=== PATIENT | female | born 1990 | race Caucasian/White ===

== ENCOUNTER 2017-12-25 15:46 | Emergency (ER) | payer OTHER, BC, SELFPAY ==
[2017-12-25 15:53] VITALS: BP 122/72; PULSE 72; RESP 14; TEMP 36.9; O2SAT 98
[2017-12-25] MEDS: KETOROLAC 60 MG/2 ML VIAL IM (16:46)
--- NOTE | 2017-12-25 17:09 | ED_ITS ---
HPI - Skin/Abscess/Foreign Bdy <NUVIA Jain - Last Filed: 12/25/17 18:56> General Chief complaint: Skin/Abscess/Foreign Body Stated complaint: Abscess Time Seen by Provider: 12/25/17 15:52 Source: patient Mode of arrival: ambulatory Limitations: no limitations History of Present Illness HPI narrative: Patient presents with chief complaint of abscess left axilla. Has been present for 4-5 days and growing despite multiple warm compresses per day. Patient has a history of MRSA. Denies any fevers, nausea vomiting diarrhea. Has had abscesses before that needed to be I&Dd. Denies any lightheadedness or dizziness. states it was draining pus a bit yesterday. Related Data Previous Rx's Medication Instructions Recorded acyclovir 400 mg tablet 400 mg PO TID #15 tab 08/17/17 lorazepam 0.5 mg tablet 0.5 mg PO ONCE PRN #1 tab 12/17/17 sulfamethoxazole-trimethoprim 1 tab PO BID #20 tab 12/25/17 Allergies Allergy/AdvReac Type Severity Reaction Status Date / Time No Known Drug Allergies Allergy Verified 12/25/17 15:55 Review of Systems <NUVIA Jain - Last Filed: 12/25/17 18:56> Review of Systems GENERAL: Denies chills, fatigue, malaise, fever, sweats. HEENT: Denies sinus pain, ear pain, sore throat, difficulty swallowing, dizziness. RESPIRATORY: Denies dyspnea, cough, wheezing, hemoptysis, sputum. CARDIOVASCULAR: Denies chest pain, palpitations, orthopnea, edema, GASTROINTESTINAL: Denies nausea, vomiting, abdominal pain, diarrhea, constipation, melena. : Denies dysuria, frequency, incontinence, hematuria, urinary retention. MUSCULOSKELETAL: denies weakness, joint pain, or bony pain SKIN: see HPI NEUROLOGIC: Denies weakness, headache, numbness, change in speech, confusion, seizures, incoordination. PSYCHIATRIC: No concerning psychosocial issues. 12 point review of systems is negative except for those stated above Exam <NUVIA Jain - Last Filed: 12/25/17 18:56> Narrative Exam Narrative: GENERAL: This is a well-nourished, well-developed patient, anxious HEAD: Atraumatic. Normocephalic. No temporal or scalp tenderness. EYES: Pupils equal round and reactive. Extraocular motions intact. No scleral icterus. No injection or drainage. ENT: Nose without bleeding, purulent drainage or septal hematoma. Throat without erythema, tonsillar hypertrophy or exudate. Uvula midline. Airway patent. NECK: Trachea midline. No JVD or lymphadenopathy. Supple, nontender, no meningeal signs. CARDIOVASCULAR: Regular rate and rhythm RESPIRATORY: Clear to auscultation. Breath sounds equal bilaterally. No wheezes , rales, or rhonchi. GASTROINTESTINAL: Abdomen soft, non-tender, nondistended. No hepato-splenomegaly , or palpable masses. No guarding. EXTREMITIES: No clubbing, cyanosis, or edema. No joint tenderness, effusion, or edema noted. BACK: Nontender without deformity or crepitance. No flank tenderness. NEURO: AOx3. SKIN: 3 x 3 cm area of erythema left axilla. Palpable abscess. Noted head. Lymphadenopathy noted right axilla as well, but no erythema or drainage noted. Initial Vital Signs Initial Vital Signs: Vital Signs Temperature 98.5 F 12/25/17 15:53 Pulse Rate 72 12/25/17 15:53 Respiratory Rate 14 12/25/17 15:53 Blood Pressure 122/72 12/25/17 15:53 Pulse Oximetry 98 12/25/17 15:53 <Jean-Claude Trinidad DO - Last Filed: 12/27/17 07:01> Initial Vital Signs Initial Vital Signs: Vital Signs Temperature 98.5 F 12/25/17 15:53 Pulse Rate 72 12/25/17 15:53 Respiratory Rate 14 12/25/17 15:53 Blood Pressure 122/72 12/25/17 15:53 Pulse Oximetry 98 12/25/17 15:53 Procedures <NUVIA Jain - Last Filed: 12/25/17 18:56> Abscess I/D Site: other (left axilla ) Side (if applicable): left Local Anesthetic: lidocaine 1% and other anesthetic (emla cream) Amount of anesthesia used (mL): 4 Technique: incised with #11 blade Irrigation: Yes Packing used?: iodoform Complications: other ( Patient tolerated procedure well. Wound culture taken.) Course <NUVIA Jain - Last Filed: 12/25/17 18:56> Orders Ordered: Discontinued Medications Ketorolac Tromethamine (Toradol) 60 mg IM NOW ONE Stop: 12/25/17 16:41 Last Admin: 12/25/17 16:46 Dose: 60 mg Trimethoprim/Sulfamethoxazole (Bactrim Ds) 1 tab PO NOW ONE Stop: 12/25/17 17:07 Last Admin: 12/25/17 17:14 Dose: 1 tab Vital Signs - 8 hr 12/25/17 15:53 12/25/17 17:17 Temperature 98.5 F Pulse Rate 72 73 Respiratory Rate 14 15 Blood Pressure 122/72 Blood Pressure [Right Arm] 110/75 Pulse Oximetry 98 98 <Jean-Claude Trinidad DO - Last Filed: 12/27/17 07:01> Orders Ordered: Discontinued Medications Ketorolac Tromethamine (Toradol) 60 mg IM NOW ONE Stop: 12/25/17 16:41 Last Admin: 12/25/17 16:46 Dose: 60 mg Trimethoprim/Sulfamethoxazole (Bactrim Ds) 1 tab PO NOW ONE Stop: 12/25/17 17:07 Last Admin: 12/25/17 17:14 Dose: 1 tab Vital Signs - 8 hr 12/25/17 15:53 12/25/17 17:17 Temperature 98.5 F Pulse Rate 72 73 Respiratory Rate 14 15 Blood Pressure 122/72 Blood Pressure [Right Arm] 110/75 Pulse Oximetry 98 98 MDM - Skin/Abscess/Foreign Bdy <NUVIA Jain - Last Filed: 12/25/17 18:56> MDM Narrative Medical decision making narrative: Patient presents with chief complaint of abscess. Abscess was drained without complications. Patient was placed on Bactrim given history of MRSA. Toradol administered an emergency department. Discussed at length return precautions if fever, worsening. Wound culture was sent. Discussed follow-up with primary care provider in a few days. Patient has no questions or concerns upon discharge. Discharge Plan Departure Patient Disposition: Home Clinical Impression: Abscess Discharge Date/Time: 12/25/17 17:20 Interventions: ED Discharge Assessment Last Done: 12/25/17 17:19 Instructions: DI for Incision and Drainage of a Skin Abscess, DI for Skin Abscess Activity Restrictions/Additional Instructions: I am starting you on antibiotics given your history of MRSA. Please monitor for worsening. Please follow-up with primary care for removal of the packing and a wound check in about 2 days. Monitor for fevers, vomiting, diarrhea. Prescriptions: New sulfamethoxazole-trimethoprim 800-160 mg tablet 1 tab PO BID Qty: 20 RF: 0 No Action acyclovir 400 mg tablet 400 mg PO TID Qty: 15 RF: 0 lorazepam 0.5 mg tablet 0.5 mg PO ONCE PRN (Reason: anxiety) Qty: 1 RF: 0 Referrals: Kailyn Jackman DO [Primary Care Provider] - <Jean-Claude Trinidad DO - Last Filed: 12/27/17 07:01> Cosign ED Attending Stefanyature Attestation: I was available for consultation during this patient's emergency department encounter
[2017-12-25] MEDS: TRIMETH/SULFA 160/800 (DS) TABLET 1 TAB PO (17:14)
[2017-12-25 17:17] VITALS: BP 110/75; PULSE 73; RESP 15; O2SAT 98
== END 2017-12-25 17:20 | disposition home or self-care (01) ==
PROVIDERS: Emergency Provider Nurse Practitioner Family; Family Provider Family Medicine; PCP Family Medicine
DX: L02.412 Cutaneous abscess of left axilla (principal)
CPT/HCPCS: 10060; 87070; 87075; 87077; 87147; 87186; 87205; 96372; 99282; 99283; J1885

== ENCOUNTER 2018-04-02 14:02 | Emergency (ER) | payer OTHER, SELFPAY ==
[2018-04-02 14:14] VITALS: BP 117/84; PULSE 68; RESP 16; O2SAT 100
--- NOTE | 2018-04-02 14:35 | ED.GENADULT ---
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 She has been vaccinated against hepatitis-B. Her last tetanus was 3 years ago. She states she was pulling a poor access needle out and stuck her left palm. she states that the needle did not break the skin. Related Data Home Medications Medication Instructions Recorded Confirmed No Known Home Medications 04/02/18 04/02/18 Allergies Allergy/AdvReac Type Severity Reaction Status Date / Time No Known Drug Allergies Allergy Verified 01/02/18 16:48 Review of Systems <LAVINIA Jain - Last Filed: 04/02/18 16:57> Review of Systems GENERAL: Denies chills, fatigue, malaise, fever, sweats. HEENT: Denies sinus pain, ear pain, sore throat, difficulty swallowing, dizziness. RESPIRATORY: Denies dyspnea, cough, wheezing, hemoptysis, sputum. CARDIOVASCULAR: Denies chest pain, palpitations, orthopnea, edema, GASTROINTESTINAL: Denies nausea, vomiting, abdominal pain, diarrhea, constipation, melena. : Denies dysuria, frequency, incontinence, hematuria, urinary retention. MUSCULOSKELETAL: denies weakness, joint pain, or bony pain SKIN: See HPI NEUROLOGIC: Denies weakness, headache, numbness, change in speech, confusion, seizures, incoordination. PSYCHIATRIC: No concerning psychosocial issues. 12 point review of systems is negative except for those stated above Exam <YESSICA Jain- - Last Filed: 04/02/18 16:57> Narrative Exam Narrative: GENERAL: This is a well-nourished, well-developed patient, no acute distress HEAD: Atraumatic. Normocephalic. No temporal or scalp tenderness. EYES: Pupils equal round and reactive. Extraocular motions intact. No scleral icterus. No injection or drainage. ENT: Nose without bleeding, purulent drainage or septal hematoma. Throat without erythema, tonsillar hypertrophy or exudate. Uvula midline. Airway patent. NECK: Trachea midline. No JVD or lymphadenopathy. Supple, nontender, no meningeal signs. CARDIOVASCULAR: Regular rate and rhythm RESPIRATORY: no cough or increased respiratory effort EXTREMITIES: No clubbing, cyanosis, or edema. No joint tenderness, effusion, or edema noted. Full range of motion left hand BACK: Nontender without deformity or crepitance. No flank tenderness. NEURO: AOx3. SKIN: no abrasion or puncture jason noted on left palm. Initial Vital Signs Initial Vital Signs: Vital Signs Pulse Rate 68 04/02/18 14:14 Respiratory Rate 16 04/02/18 14:14 Blood Pressure 117/84 04/02/18 14:14 Pulse Oximetry 100 04/02/18 14:14 <Jean-Claude Trinidad DO - Last Filed: 04/02/18 17:24> Initial Vital Signs Initial Vital Signs: Vital Signs Pulse Rate 68 04/02/18 14:14 Respiratory Rate 16 04/02/18 14:14 Blood Pressure 117/84 04/02/18 14:14 Pulse Oximetry 100 04/02/18 14:14 Course <NUVIA Jain - Last Filed: 04/02/18 16:57> Orders Ordered: ED Orders 04/02/18 14:30 Alanine Aminotransferase Stat HIV 1 and 2 Antibody Stat Hepatitis B Surface Antigen Stat Hepatitis C Virus Antibody Stat Vital Signs - 8 hr 04/02/18 14:14 Pulse Rate 68 Respiratory Rate 16 Blood Pressure [Right Arm] 117/84 Pulse Oximetry 100 <Jean-Claude Trinidad DO - Last Filed: 04/02/18 17:24> Orders Ordered: ED Orders 04/02/18 14:30 Alanine Aminotransferase Stat HIV 1 and 2 Antibody Stat Hepatitis B Surface Antigen Stat Hepatitis C Virus Antibody Stat Vital Signs - 8 hr 04/02/18 14:14 Pulse Rate 68 Respiratory Rate 16 Blood Pressure [Right Arm] 117/84 Pulse Oximetry 100 Medical Decision Making <NUVIA Jain - Last Filed: 04/02/18 16:57> Lab Data Lab Results 04/02/18 04/02/18 Range/Units 14:30 14:30 ALT 25 (9-52) IU/L Hep Bs Antigen Negative (NEGATIVE) s/c Hepatitis C Antibody Negative (NEGATIVE) s/c HIV 1&2 Antibody Negative (NEGATIVE) MDM Narrative Medical decision making narrative: exposure panel labs were drawn per protocol. The patient's tetanus is up-to-date. She has been vaccinated against hepatitis-B. Paperwork filled out per hospital protocol. <Jean-Claude Trinidad DO - Last Filed: 04/02/18 17:24> Lab Data Lab Results 04/02/18 04/02/18 Range/Units 14:30 14:30 ALT 25 (9-52) IU/L Hep Bs Antigen Negative (NEGATIVE) s/c Hepatitis C Antibody Negative (NEGATIVE) s/c HIV 1&2 Antibody Negative (NEGATIVE) Discharge Plan Departure Patient Disposition: Home Clinical Impression: Accidental needlestick injury with exposure to body fluid Discharge Date/Time: 04/02/18 15:19 Interventions: ED Discharge Assessment Last Done: 04/02/18 15:18 Instructions: DI for Accidental Exposure to Body Fluids Activity Restrictions/Additional Instructions: Please follow-up with employee health. please do not stick yourself with any more needles. Prescriptions: No Action No Known Home Medications RF: 0 Referrals: Kailyn Jackman DO [Primary Care Provider] - <Jean-Claude Trinidad DO - Last Filed: 04/02/18 17:24> Cosign ED Attending Stefanyature Attestation: I was available for consultation during this patient's emergency department encounter
[2018-04-02 14:52] LABS: Alanine Aminotransferase 25 IU/L (9-52)
[2018-04-02 15:41] LABS: Hepatitis B Surface Antigen NEGATIVE s/c (NEGATIVE)
[2018-04-02 15:52] LABS: HIV 1 and 2 Antibody NEGATIVE (NEGATIVE); Hep C Virus Ab w/Reflex Quant NEGATIVE s/c (NEGATIVE)
[2018-04-04 15:41] LABS: Hepatitis B Surf Ab Qualitativ Reactive (Nonreactive)
== END 2018-04-02 15:19 | disposition home or self-care (01) ==
PROVIDERS: Emergency Provider Nurse Practitioner Family; Family Provider Family Medicine; PCP Family Medicine
DX: Z77.21 Contact with and (suspected) exposure to potentially hazardous body fluids (principal); W46.0XXA Contact with hypodermic needle, initial encounter; Y99.0 Civilian activity done for income or pay
CPT/HCPCS: 36415; 99282

== ENCOUNTER → 2018-04-29 18:20 | Outpatient (CLI) | payer OTHER, BC, SELFPAY ==
[2018-04-29 19:23] LABS: Influenza A and B by PCR Rapid Negative (Negative)
== END ==
PROVIDERS: Family Provider Family Medicine; PCP Family Medicine; Visit Provider Family Medicine
DX: R52 Pain, unspecified (principal)
CPT/HCPCS: 87400

== ENCOUNTER → 2018-06-25 13:17 | Outpatient (CLI) | payer OTHER, BC, SELFPAY | PROVIDERS: Family Provider Family Medicine; PCP Family Medicine; Visit Provider Nurse Practitioner Obstetrics & Gynecology | DX: N91.2 Amenorrhea, unspecified (principal) | CPT/HCPCS: 36415; 84702 ==

== ENCOUNTER → 2018-06-28 10:12 | Outpatient (CLI) | payer OTHER, BC, SELFPAY | PROVIDERS: PCP Family Medicine; Visit Provider Nurse Practitioner Obstetrics & Gynecology | DX: N91.2 Amenorrhea, unspecified (principal) | CPT/HCPCS: 36415; 84702 ==

== ENCOUNTER → 2018-07-01 13:26 | Outpatient (CLI) | payer OTHER, BC, SELFPAY | PROVIDERS: PCP Family Medicine; Visit Provider Nurse Practitioner Obstetrics & Gynecology | DX: N91.2 Amenorrhea, unspecified (principal) | CPT/HCPCS: 36415; 84702 ==

== ENCOUNTER → 2018-07-03 12:11 | Outpatient (CLI) | payer OTHER, BC, SELFPAY ==
[2018-07-03 14:00] LABS: HCG Quantitative /Beta subunit 1642.5 mIU/mL
== END ==
PROVIDERS: PCP Family Medicine; Visit Provider Nurse Practitioner Obstetrics & Gynecology
DX: N91.2 Amenorrhea, unspecified (principal)
CPT/HCPCS: 36415; 84702

== ENCOUNTER → 2018-07-29 18:22 | Outpatient (ROUT) | payer OTHER, BC, SELFPAY ==
[2018-07-29 20:30] LABS: Urine N gonorrhoeae NOT DETECTED
[2018-07-29 20:32] LABS: Urine Chlamydia NOT DETECTED
== END ==
PROVIDERS: PCP Family Medicine; Visit Provider Nurse Practitioner Obstetrics & Gynecology
DX: Z34.00 Encounter for supervision of normal first pregnancy, unspecified trimester (principal)
CPT/HCPCS: 87491; 87591

== ENCOUNTER → 2018-07-30 12:05 | Outpatient (CLI) | payer OTHER, BC, SELFPAY ==
[2018-07-30 12:13] LABS: RBC Urine None Seen (0-5/HPF)
[2018-07-30 12:29] LABS: Hematocrit 40.2 % (36-46); Hemoglobin 13.3 g/dL (12.0-16.0); Mean Corpuscular HGB Conc 33.2 % (30-36); Mean Corpuscular Hemoglobin 30.3 PG (26-34); Mean Corpuscular Volume 91.4 fL (80-100); Platelet Count 198 X10^3/uL (150-400); Red Cell Distribution Width 13.4 % (11.6-14.8); White Blood Cell Count 11.4 X10^3/uL (4.5-11.0)
[2018-07-30 13:26] LABS: Appearance Urine UA CLEAR; Bilirubin Urine UA NEGATIVE (NEGATIVE); Color Urine UA YELLOW; Glucose Urine UA NEGATIVE (Negative); Ketones Urine UA NEGATIVE (NEGATIVE); Leukocyte Esterase Urine UA NEGATIVE (NEGATIVE); Nitrite Urine UA NEGATIVE (Negative); Occult Blood Urine UA NEGATIVE (Negative); Protein Urine UA NEGATIVE (Negative); Urobilinogen Urine UA 0.2 E.U./dL (0.2)
[2018-07-30 13:48] LABS: Squamous Epithelial Cell Urine 0-1 /HPF (0-5/HPF); WBC Urine 0-1/HPF (0-5/HPF)
[2018-07-30 13:49] LABS: Bacteria Urine Few (2-10)
[2018-07-30 15:11] LABS: Hepatitis B Surface Antigen NEGATIVE s/c (NEGATIVE); Rubella Antibody IgG 18.4 IU/mL (>15)
[2018-07-30 15:27] LABS: T4 Total Thyroxine 9.33 ug/dL (5.5-11.0)
[2018-07-30 15:41] LABS: Thyroid Stimulating Hormone 0.45 uIU/mL (0.47-4.68)
[2018-08-01 10:24] LABS: HIV 1 and 2 Antibody NEGATIVE (NEGATIVE)
[2018-08-01 14:01] LABS: RPR Screen Nonreactive (Nonreactive)
== END ==
PROVIDERS: PCP Family Medicine; Visit Provider Nurse Practitioner Obstetrics & Gynecology
DX: Z34.00 Encounter for supervision of normal first pregnancy, unspecified trimester (principal)
CPT/HCPCS: 36415; 81001; 84436; 84443; 85027; 86592; 86696; 86703; 86762; 86900; 86901; 87086; 87340

== ENCOUNTER → 2018-08-14 19:15 | Outpatient (ROUT) | payer OTHER, BC, SELFPAY | PROVIDERS: PCP Family Medicine; Visit Provider Nurse Practitioner Obstetrics & Gynecology | DX: Z34.01 Encounter for supervision of normal first pregnancy, first trimester (principal) | CPT/HCPCS: 86695 ==

== ENCOUNTER → 2018-09-23 19:24 | Outpatient (ROUT) | payer OTHER, BC, SELFPAY ==
[2018-09-30 10:27] LABS: AFP, Serum 45.1 ng/mL; Calc Gestational Age 16.4; Est Date Determined by NOT GIVEN; Maternal Weight 141 lbs; Number of Fetuses 1; Prev Pregnancies Down Syndrome NOT GIVEN
== END ==
PROVIDERS: PCP Family Medicine; Visit Provider Nurse Practitioner Obstetrics & Gynecology
DX: Z34.02 Encounter for supervision of normal first pregnancy, second trimester (principal)
CPT/HCPCS: 82105

== ENCOUNTER 2018-10-29 13:41 | Outpatient (CLI) | payer OTHER, BC, SELFPAY ==
--- NOTE | 2018-10-29 14:06 | PM.OBTRLD ---
Visit Information Visit Information Date of evaluation: 10/29/18 Primary OB Provider: Katie Cohen Reason for Evaluation: Yes other Comments/Additional reasons for admission: decreased FM and concern for PPROM Vital Signs Vital Signs: stable, see Obix flowsheet [facility] Medical History Chlamydia (Chronic ~2012) Fracture of wrist (Chronic ~2001) Headache (Chronic ~2008) Heavy menstrual period (Chronic ~2004) Herpes (Chronic ~2012) Human papilloma virus (Chronic ~2012) Interstitial cystitis (Chronic ~2013) Migraines (Chronic ~2008) UTI (urinary tract infection) (Chronic ~1991) Abnormal Pap smear of cervix (Resolved ~2012) Surgical History Anesthesia (Resolved) Status post loop electrosurgical excision procedure (LEEP) of cervix (08/19/14) Family History Father Age: 68 Mental health problem Sister Age: 31 Mental health problem Grandfather No problems noted. Social History marital status: occupational status: employed ([employer]) Smoking Status: Never smoker alcohol intake: current substance use type: does not use Family History Father Age: 68 Mental health problem Sister Age: 31 Mental health problem Grandfather No problems noted. Social History marital status: occupational status: employed ([employer]) Smoking Status: Never smoker alcohol intake: current substance use type: does not use Review of Systems Review of Systems All systems reviewed & are unremarkable except as noted in HPI and below Exam Vital Signs (past 8 hours): 28YO @ [id number] by LMP and 6wk US presents from work in ED, concerned about decreased FM in last 24 hours and watery discharge for last 2 days. Has soaked through 2 panty liners and her pants today. On day 5 of treatment for vulvovaginal candidiasis. Other: FHTs 130-140bpm Psych Appearance: grossly normal Mental Status: mental status grossly normal Speech and Movement: agitated Mood: anxious mood Affect: animated and anxious affect Attitude: cooperative Thought Process: normal Objective Labs Labs: AmniSure-negative Evaluation Evaluation Baseline heart rate: 135 Contraction Frequency (minutes): 0 Comments: FM felt by patient in triage Diagnosis, Plan/Disposition Final Diagnosis (1) Amniotic cavity/membrane problem suspected but not found: Current Visit: Yes Status: Acute Plan/Disposition Plan: D/C back to work w/ reassurance and emotional support given. Routine precautions. RTC as previously scheduled. OB Disposition: home
--- NOTE | 2018-10-29 14:18 | P.TNLD_ITS ---
Visit Information Visit Information Date of evaluation: 10/29/18 Primary OB Provider: Katie Cohen Reason for Evaluation: Yes other Comments/Additional reasons for admission: decreased FM and concern for PPROM Vital Signs Vital Signs: stable, see Obix flowsheet [facility] Medical History Chlamydia (Chronic ~2012) Fracture of wrist (Chronic ~2001) Headache (Chronic ~2008) Heavy menstrual period (Chronic ~2004) Herpes (Chronic ~2012) Human papilloma virus (Chronic ~2012) Interstitial cystitis (Chronic ~2013) Migraines (Chronic ~2008) UTI (urinary tract infection) (Chronic ~1991) Abnormal Pap smear of cervix (Resolved ~2012) Surgical History Anesthesia (Resolved) Status post loop electrosurgical excision procedure (LEEP) of cervix (08/19/14) Family History Father Age: 68 Mental health problem Sister Age: 31 Mental health problem Grandfather No problems noted. Social History marital status: occupational status: employed ([employer]) Smoking Status: Never smoker alcohol intake: current substance use type: does not use Family History Father Age: 68 Mental health problem Sister Age: 31 Mental health problem Grandfather No problems noted. Social History marital status: occupational status: employed ([employer]) Smoking Status: Never smoker alcohol intake: current substance use type: does not use Review of Systems Review of Systems All systems reviewed & are unremarkable except as noted in HPI and below Exam Vital Signs (past 8 hours): 28YO @ [id number] by LMP and 6wk US presents from work in ED, concerned about decreased FM in last 24 hours and watery discharge for last 2 days. Has soaked through 2 panty liners and her pants today. On day 5 of treatment for vulvovaginal candidiasis. Other: FHTs 130-140bpm Psych Appearance: grossly normal Mental Status: mental status grossly normal Speech and Movement: agitated Mood: anxious mood Affect: animated and anxious affect Attitude: cooperative Thought Process: normal Objective Labs Labs: AmniSure-negative Evaluation Evaluation Baseline heart rate: 135 Contraction Frequency (minutes): 0 Comments: FM felt by patient in triage Diagnosis, Plan/Disposition Final Diagnosis (1) Amniotic cavity/membrane problem suspected but not found: Current Visit: Yes Status: Acute Plan/Disposition Plan: D/C back to work w/ reassurance and emotional support given. Routine precautions. RTC as previously scheduled. OB Disposition: home
== END 2018-10-29 14:15 | disposition home or self-care (01) ==
LOC: LABOR 14:25 → OB 10-30 13:10
PROVIDERS: PCP Family Medicine; Visit Provider Nurse Practitioner Obstetrics & Gynecology
DX: Z03.71 Encounter for suspected problem with amniotic cavity and membrane ruled out (principal)
CPT/HCPCS: 84112; G0378; G0379

== ENCOUNTER → 2018-12-03 14:33 | Outpatient (CLI) | payer OTHER, BC, SELFPAY | PROVIDERS: PCP Family Medicine | DX: Z23 Encounter for immunization (principal) | CPT/HCPCS: 90471; 90686 ==

== ENCOUNTER → 2019-02-05 15:20 | Outpatient (ROUT) | payer OTHER, BC, SELFPAY | PROVIDERS: PCP Family Medicine; Visit Provider Nurse Practitioner Obstetrics & Gynecology | DX: Z11.2 Encounter for screening for other bacterial diseases (principal) | CPT/HCPCS: 87081 ==

== ENCOUNTER 2019-03-04 11:03 | Inpatient (IN) | payer OTHER, BC, SELFPAY ==
--- NOTE | 2019-03-04 11:47 | P.HPOB_ITS ---
OB HPI History of Present Condition Chief complaint: OBSERVATION Narrative: Denise Ledezma is a 28 year old female, @ [id number] by LMP concordant w/ 6wk US who presents for evaluation of labor. Contractions started last night and have slowly progressed in frequency and intensity. +FM and occasional bloody discharge w/ mucus. No LOF. Routine PN care w/ CNM. Evaluation Evaluation Baseline heart rate: 130 Variability: Moderate (11-25) monitor accelerations: Present monitor decelerations: Absent Contraction Frequency (minutes): 2 Uterine Contraction Intensity: Moderate Category of Tracing: I Cervical dilation (cm): 4 Cervical effacement (%): 100 station: -1 [facility] Family History Father Age: 69 Mental health problem Sister Age: 32 Mental health problem Grandfather No problems noted. Social History marital status: occupational status: employed ([employer]) Smoking Status: Never smoker alcohol intake: current substance use type: does not use Meds Home Medications and Allergies Home Medications Medication Instructions Recorded Confirmed Type valacyclovir [Valtrex] 500 mg PO BID 03/04/19 03/04/19 History Allergies Allergy/AdvReac Type Severity Reaction Status Date / Time No Known Drug Allergies Allergy Verified 01/02/18 16:48 Review of Systems Review of Systems ROS Unobtainable: All systems reviewed & are unremarkable except as noted in HPI and below Exam Vital Signs (past 8 hours): BP 128/74, HR 84, T-97.2 Chest Chest: normal inspection of the chest Resp Effort & Inspection: normal respiratory effort and able to speak in complete sentences Cardio Rate: regular rate Rhythm: regular rhythm Objective Labs Labs: ABO/Rh-B positive, AB screen-negative, Hep B-neg, HIV-neg, GC/CT-neg/neg, RPR-NR, Rubella-immune, NIPS-neg/female, MsAFP-neg; 12/04/18: Hgb-10.5, Hct-32.6, Plt-203, 2hr gtt-WNL/83/155/152; 02/05/19: GBS-neg Assessment and Plan Assessment and Plan Assessment and Plan narrative: Term Primipara Active Labor No indication for GBS prophylaxis Cat I FHR P: Admit, routine orders w/ SL IV, CBC, T&S. May switch to intermittent auscultation. Encourage frequent position changes and movement in labor. Reassess in 4 hours or sooner, PRN. , [facility] OB notified, as a courtesy. Time Spent with Patient Total time spent with greater than 50% in coordination of care (as documented) at patient's floor/unit and/or counseling patient:: 25 - 35 minutes
[2019-03-04 12:36] LABS: Add Manual Diff / Slide Review NO; Basophils Absolute Auto 0 /uL (0-100); Basophils Percent Auto 0.2 % (0-2); Eosinophils Absolute Auto 0 /uL (0-450); Eosinophils Percent Auto 0.2 % (2-4); Hematocrit 39.7 % (36-46); Hemoglobin 13.3 g/dL (12.0-16.0); Lymphocytes Absolute Auto 1800 /uL (1100-4500); Lymphocytes Percent Auto 10.7 % (25-40); Mean Corpuscular HGB Conc 33.5 % (30-36); Mean Corpuscular Hemoglobin 30.8 PG (26-34); Monocytes Absolute Auto 1100 /uL (0-900); Monocytes Percent Auto 6.4 % (3-14); Neutrophils Absolute Auto 13600 /uL (1500-7000); Neutrophils Percent Auto 82.5 % (50-75); Platelet Count 206 X10^3/uL (150-400); Red Blood Cell Count 4.31 X10^6/uL (4.0-5.2); White Blood Cell Count 16.4 X10^3/uL (4.5-11.0)
[2019-03-04 13:27] VITALS: BP 128/74
[2019-03-04] MEDS: LACTATED RINGERS 1,000 ML 125 ML IV (13:56)
--- NOTE | 2019-03-04 15:25 | PM.OBPNLAB ---
Date/Time Date Patient Seen: 03/04/19 Time Patient Seen: 15:20 Pain Control Pain control: tolerating well Comments: Pt breathing through and moaning with contractions Pelvic Exam Dilation (cm): 6 Effacement (%): 100 station: -1 Amniotic membrane status: Bulging Contractions Contractions on admission: none Monitor mode: Palpation Pitocin rate (mU/min): 0 Contraction frequency (min): 4 Contraction duration (min): 1 Contraction pattern: Regular Contraction phase: Resting Contraction intensity: Moderate Status status: Category l Heart Rate Baseline: 130 Monitor Decelerations: Absent Comments: Reassuring by intermittent auscultation Assessment and Plan Assessment: active labor Plan: continuous present management
--- NOTE | 2019-03-04 19:45 | PM.OBPRVD ---
 Events: Meconium Stained Fluid Labor & Delivery Delivery date: 03/04/19 Intrapartal events: None Cervical ripening method: none Induction method: none Delivery augmentation: rupture of membranes Delivery monitor: external FHT Route of delivery: L&D Laceration Description: None Estimated blood loss (mL): 50 Narrative: Pt labored well unmedicated with Cat I FHR/reassuring FHR by intermittent auscultation. Pt began to feel increasing rectal pressure with spontaneous urge to push. CE was 8.5cm w/ BBOW @ +2 station. AROM, light meconium stained amniotic fluid, for augmentation w/ patiet's consent. Pt rapidly progressed to spontaneous urge to push w/ rectal bulging and was presumed to be complete. RT was called to standby for with MSAF. NSVB of a vigorous baby girl in CRUZ position w/ no NC and easy delivery of the shoulders. Holcomb was placed on maternal abdomen by CNM and FOB. 30 units of pitocin in 500mL LR was started at 300mL/hr for AMSTL. After cessation of pulsation, the cord was double clamped by CNM and cut by FOB. Hospital cord blood hold sample was collected. Spontaneous, Schultze delivery of an apparently intact placenta, membranes and 3VC. Fundus immediately firm and bleeding minimal. Vagina and perineum inspected and intact. QBL 50ML. Baby 1: gender: Female Presentation: vertex position: Right Occiput Anterior Placenta delivery description: Spontaneous cord vessel description: 3 Vessels score (1 min): 9 score (5 min): 9 Plan for aftercare: Routine orders w/ 18-24hr stay
[2019-03-04] MEDS: KETOROLAC 30 MG/ML VIAL IV (21:11)
[2019-03-05] MEDS: IBUPROFEN 600 MG TABLET PO ×2 (03:13→09:04)
--- NOTE | 2019-03-05 12:57 | PM.OBDS.1 ---
Discharge Providers Provider Date of admission: 03/04/19 11:03 Discharge Date: 03/05/19 Primary care physician: Katie Cohen CNM Consults: 03/04/19 11:43 Consult to Anesthesiology Urgent Comment: Consulting Provider: Anesthesiologist Reason for consultation: If epidural requested, aware no request at this time Has provider been notified: Yes 03/05/19 19:39 Consult to [employer] Routine Comment: well independently. No consultation performed during holiday. Discharge provider: Katie Cohen CNM Summary Discharge Diagnosis (1) Normal vaginal delivery: Status: Acute Problem Details: Routine hospital course x 18 hours s/p NSVB (2) 39 weeks gestation of : Status: Acute Problem Details: resolved during admission Time Spent with Patient Time attestation: Total time spent providing and/or coordinating discharge services: 1 hour Objective Labs Result Diagrams: 03/04/19 12:25 Labs: Laboratory Results - last 24 hr 03/04/19 12:55 Blood Type B Positive Antibody Screen Negative Exam Vital Signs (past 8 hours): BP121/78, HR87, RR16, T98.4F Narrative Exam Narrative: Pt ambulating in room, showered and dressed, eager for discharge to home. Voiding and independently well overnight. Minimal cramping pain well controlled w/ PO Tylenol and ibuprofen. Bleeding decreasing, no clots. Tolerating general diet. FOB present and supportive. Chest Chest: normal inspection of the chest Breast inspection: normal inspection of the breasts Bimanual Exam- Vagina & Uterus: uterine mobility normal and other (Fundus firm @ U, per RN) Psych Appearance: grossly normal and well kempt Mental Status: mental status grossly normal Speech and Movement: speech and movement normal Mood: congruent mood Affect: normal affect Attitude: cooperative Thought Process: normal Discharge Plan Discharge Plan Patient Disposition: Home Discharge orders & Medications Prescriptions: New acetaminophen 325 mg Tablet 650 mg PO Q6HR PRN (Reason: Pain, Mild (1-3)) 14 Days Qty: 0 RF: 2 docusate sodium [DOK] 100 mg Capsule 100 mg PO DAILY 14 Days Qty: 0 RF: 0 ibuprofen 600 mg Tablet 600 mg PO Q6H PRN (Reason: Pain, Mild (1-3)) 60 Days Qty: 0 RF: 0 [id number] Cream 1 applic topical PRN PRN (Reason: Tenderness) 14 Days Qty: 0 RF: 0 Discontinued valacyclovir [Valtrex] 500 mg tablet 500 mg PO BID RF: 0 Follow up/Referrals: Katie Cohen CNM [[employer] Electr[employer] Operator] - 2 Weeks Kailyn Jackman DO [Primary Care Provider] - Discharge Health Status Multidrug resistant organism: No MDRO Diet/Activity/Treatments Diet: Diet as Tolerated and Regular Activity: Pelvic rest x 6 weeks Skin/Wound/Dressing Care Report to your healthcare provider any signs of infection, such as:: chills, fever, increased pain, unusual drainage and unusual redness Discharge Data Primary Care Provider: Kailyn Jackman Attending Provider: Katie Cohen Admit Date/Time: 03/04/19 11:03
[2019-03-05 14:51] VITALS: BP 128/74; PULSE 86; RESP 16; TEMP 36.9
== END 2019-03-05 14:35 | disposition home or self-care (01) | DRG 807 ==
PROVIDERS: Admitting Provider Nurse Practitioner Obstetrics & Gynecology; PCP Family Medicine; Visit Provider Nurse Practitioner Obstetrics & Gynecology
DX: O80 Encounter for full-term uncomplicated delivery (principal); Z37.0 Single live birth; Z3A.39 39 weeks gestation of pregnancy
CPT/HCPCS: 36415; 59050; 85025; 86850; 86900; 86901; G0378; G0379; J1885

== ENCOUNTER → 2019-07-10 11:12 | Outpatient (CLI) | payer BC, SELFPAY ==
[2019-07-10 12:57] LABS: Add Manual Diff / Slide Review NO; Basophils Absolute Auto 0 /uL (0-100); Basophils Percent Auto 0.7 % (0-2); Eosinophils Absolute Auto 100 /uL (0-450); Eosinophils Percent Auto 2.4 % (2-4); Hematocrit 42.9 % (36-46); Hemoglobin 14.3 g/dL (12.0-16.0); Lymphocytes Absolute Auto 2400 /uL (1100-4500); Lymphocytes Percent Auto 40.1 % (25-40); Mean Corpuscular HGB Conc 33.3 % (30-36); Mean Corpuscular Volume 93.1 fL (80-100); Monocytes Absolute Auto 600 /uL (0-900); Monocytes Percent Auto 9.5 % (3-14); Neutrophils Absolute Auto 2800 /uL (1500-7000); Neutrophils Percent Auto 47.3 % (50-75); Platelet Count 191 X10^3/uL (150-400); Red Cell Distribution Width 12.9 % (11.6-14.8)
[2019-07-10 13:11] LABS: Alanine Aminotransferase 31 IU/L (<35); Albumin 4.6 g/dL (3.5-5.0); Albumin Globulin Ratio 1.3 (1.0-2.8); Alkaline Phosphatase 80 U/L (38-126); Aspartate Aminotransferase 34 IU/L (14-36); Bilirubin Total 0.3 mg/dL (0.2-1.3); Blood Urea Nitrogen 14 mg/dL (7-17); Calcium 9.7 mg/dL (8.4-10.2); Carbon Dioxide 29 mmol/L (22-32); Chloride 101 mmol/L (98-107); Estimated Glomerular Filt Rate > 60.0 mL/min (>60); Globulin 3.5 g/dL (1.7-4.1); Glucose 71 mg/dL (70-100); HEMOLYSIS < 15 (0-50); Potassium 3.6 mmol/L (3.4-5.1); Sodium 141 mmol/L (137-145); Total Protein 8.1 g/dL (6.3-8.2)
[2019-07-10 13:44] LABS: Ferritin 24 ng/mL (6-137)
== END ==
PROVIDERS: PCP Family Medicine; Referring Provider Family Medicine; Visit Provider Family Medicine
DX: D64.9 Anemia, unspecified (principal); R42 Dizziness and giddiness
CPT/HCPCS: 36415; 80053; 82728; 85025

== ENCOUNTER → 2020-01-08 14:37 | Outpatient (CLI) | payer BC, SELFPAY ==
--- NOTE | 2020-01-08 14:39 | DI.US.S_ITS ---
PROCEDURE: US OB <= 14 WEEKS FETUS INDICATIONS: INITIAL SIZING AND DATING OUTSIDE/PRIOR DATING DATA: Last menstrual period (LMP): 11/20/19. LMP-based estimated date of delivery (BETH): 08/27/19 . First dating scan (date and location): 01/01/20 . Estimated date of delivery (BETH) from first dating scan: 08/28/20 . TECHNIQUE: Real-time scanning was performed of the fetus and maternal pelvic organs, with image documentation. Endovaginal scanning was also performed to better visualize the fetus and maternal ovaries. COMPARISON: None. FINDINGS: Embryo: There is a single living intrauterine gestation measuring 4 mm in diameter which correlates with a gestational age of 6 weeks 1 day and cardiac activity at 110 beats per minute was observed. Measurement variability in dating: +/- 4 weeks by LMP, +/- 7 days by mean sac diameter (use before 6 weeks gestation if crown-rump length not able to be measured), +/- 5 days by crown-rump length (up to 8 weeks 6 days gestation), +/- 7 days by crown-rump length (up to 13 weeks 6 days gestation). Maternal organs: Ovaries normal considering gestational status. Limited images through the kidneys demonstrate no hydronephrosis. IMPRESSION: 6 week 1 day gestational age, delivery date projected to be centered on 08/28/20 +/-5 days. Follow-up anatomic survey at approximately 20 weeks gestation is recommended. Dictated by: Eamon Saez M.D. on 01/08/2020 at 17:45 Approved by: Eamon Saez M.D. on 01/08/2020 at 17:49
== END ==
PROVIDERS: PCP Family Medicine; Referring Provider Nurse Practitioner Obstetrics & Gynecology; Visit Provider Nurse Practitioner Obstetrics & Gynecology
DX: Z34.91 Encounter for supervision of normal pregnancy, unspecified, first trimester (principal); Z3A.01 Less than 8 weeks gestation of pregnancy
CPT/HCPCS: 76801

== ENCOUNTER → 2020-02-23 08:34 | Outpatient (CLI) | payer BC, SELFPAY ==
[2020-02-23 10:59] LABS: HCG Quantitative /Beta subunit 154.9 mIU/mL
== END ==
PROVIDERS: PCP Family Medicine; Referring Provider Family Medicine; Visit Provider Family Medicine
DX: N91.2 Amenorrhea, unspecified (principal)
CPT/HCPCS: 36415; 84702

== ENCOUNTER → 2020-02-25 08:54 | Outpatient (CLI) | payer BC, SELFPAY ==
[2020-02-25 10:45] LABS: HCG Quantitative /Beta subunit 428.1 mIU/mL
== END ==
PROVIDERS: PCP Family Medicine; Referring Provider Family Medicine; Visit Provider Nurse Practitioner Obstetrics & Gynecology
DX: N91.2 Amenorrhea, unspecified (principal)
CPT/HCPCS: 36415; 84702

== ENCOUNTER → 2020-03-22 07:46 | Outpatient (CLI) | payer BC, SELFPAY ==
--- NOTE | 2020-03-22 | DI.US.S_ITS ---
PROCEDURE: US OB <= 14 WEEKS FETUS INDICATIONS: INITIAL SIZING AND DATING OUTSIDE/PRIOR DATING DATA: First dating scan (date and location): 03/22/2020. Estimated date of delivery (BETH) from first dating scan: 10/31/2020. TECHNIQUE: Real-time scanning was performed of the fetus and maternal pelvic organs, with image documentation. Endovaginal scanning was also performed to better visualize the fetus and maternal ovaries. COMPARISON: [facility], , OB <= 14 WEEKS FETUS, 01/08/2020, 15:00. FINDINGS: Embryo: [place]-rump length measures 17 mm corresponding to 8 weeks 1 day. Heart rate measures 171 beats per minute. Small perigestational sac bleed site measuring 1.9 x 1.8 x 1.3 cm Measurement variability in dating: +/- 4 weeks by LMP, +/- 7 days by mean sac diameter (use before 6 weeks gestation if crown-rump length not able to be measured), +/- 5 days by crown-rump length (up to 8 weeks 6 days gestation), +/- 7 days by crown-rump length (up to 13 weeks 6 days gestation). Maternal organs: Adnexa within normal limits, with right corpus luteal cyst . Limited images through the kidneys demonstrate no hydronephrosis. IMPRESSION: 8 week 1 day single living IUP with small perigestational sac bleed site. Dictated by: Rajesh Barbour [facility] Interpreted: Liam Merrill MD on 03/22/2020 at 9:46 Approved by: Liam Merrill M.D. on 03/22/2020 at 11:11
== END ==
PROVIDERS: PCP Family Medicine; Referring Provider Nurse Practitioner Obstetrics & Gynecology; Visit Provider Nurse Practitioner Obstetrics & Gynecology
DX: Z36.87 Encounter for antenatal screening for uncertain dates (principal); Z3A.08 8 weeks gestation of pregnancy
CPT/HCPCS: 76801; 76817

== ENCOUNTER → 2020-06-14 07:47 | Outpatient (CLI) | payer BC, SELFPAY ==
--- NOTE | 2020-06-14 | DI.US.S_ITS ---
PROCEDURE: US OB >= 14 WEEKS FETUS INDICATIONS: ANATOMY OUTSIDE/PRIOR DATING DATA: Last menstrual period (LMP): Unknown . LMP-based estimated date of delivery (BETH): Not applicable . First dating scan (date and location): 03/22/20 . Estimated date of delivery (BETH) from first dating scan: 10/31/20 . TECHNIQUE: Real-time scanning was performed of the fetus, with image documentation and biometric measurements. Endovaginal scanning: Not performed COMPARISON: None. FINDINGS: General: A single living intrauterine gestation is present. Presentation: Vertex. Placenta: Placental position is posterior , without previa. Amniotic fluid index: 13.4 cm, normal range is 5-24 cm. heart rate: 141 beats per minute. Maternal cervical canal: 3.4 cm long. Normal lower limit is 2.5 cm. biometrics: Biparietal diameter: 4.9 cm, 20 weeks, five days Head circumference: 17.9 cm, 20 weeks, three days Abdominal circumference: 15.1 cm, 20 weeks, two days Femur length: 3.2 cm, 20 weeks, 0 days Estimated gestational age from initial scan: 20 weeks, one day. Composite gestational age from present scan: 20 weeks, three days Estimated weight and percentile: 339 g, 49th percentile Measurement variability for biometric dating: +/- 7 days from 14 weeks to 15 weeks 6 days gestation, +/- 10 days from 16 weeks to 21 weeks 6 days gestation, +/- 2 weeks from 22 weeks to 27 weeks 6 days gestation, +/- 3 weeks for 28 weeks gestation or later. weight reference: 4500 g or EFW >90/95% is considered macrosomia or large for gestational age. EFW <10% is small for gestational age. EFW 5% or less is considered intra-uterine growth restriction. Anatomic survey: Neuro: Ventricles are non-dilated at less than 10 mm. Cisterna magna is normal at 3-11 mm. Cerebellum is normal in size and morphology. Nuchal skin fold: Normal at less than 6 mm between 14-21 weeks gestational age. Face: Nose and lips, facial profile are normal. Spine: No evidence for spina bifida. Heart: 4-chambered heart is present, with normal ventricular outflow tracts. Diaphragm: Diaphragm is intact. Stomach: Left-sided stomach is present. Kidneys: No hydronephrosis. Normal is less than 5 mm in 2nd trimester, less than 7 mm in 3rd trimester. Cord: 3-vessel cord has orthotopic insertion. Cord insertion is 1.6 cm from the placental edge. Bladder: Normal in size. Extremities: All 4 extremities identified. IMPRESSION: 1. Single living intrauterine with appropriate growth since the prior study. 2. Normal anatomy. 3. Marginal placental cord insertion. Dictated by: Shanae Campbell M.D. on 06/14/2020 at 13:24 Approved by: Shanae Campbell M.D. on 06/14/2020 at 13:49
== END ==
PROVIDERS: PCP Family Medicine; Referring Provider Nurse Practitioner Obstetrics & Gynecology; Visit Provider Nurse Practitioner Obstetrics & Gynecology
DX: Z34.92 Encounter for supervision of normal pregnancy, unspecified, second trimester (principal); Z3A.20 20 weeks gestation of pregnancy
CPT/HCPCS: 76811

== ENCOUNTER → 2020-08-10 06:50 | Outpatient (CLI) | payer BC, SELFPAY ==
[2020-08-10 08:32] LABS: Glucose Fasting 86 mg/dL (70-100)
[2020-08-10 08:50] LABS: Glucose 1 Hour 170 mg/dL (70-170)
[2020-08-10 09:23] LABS: Glucose Tol Interpretation INTERPRETATION
[2020-08-10 10:13] LABS: Glucose 2 Hour 157 mg/dL (70-140)
== END ==
PROVIDERS: PCP Family Medicine; Referring Provider Nurse Practitioner Obstetrics & Gynecology; Visit Provider Nurse Practitioner Obstetrics & Gynecology
DX: Z34.90 Encounter for supervision of normal pregnancy, unspecified, unspecified trimester (principal); Z13.1 Encounter for screening for diabetes mellitus; Z3A.28 28 weeks gestation of pregnancy
CPT/HCPCS: 36415; 82951; 82952

== ENCOUNTER → 2020-08-12 10:30 | Outpatient (CLI) | payer BC, SELFPAY ==
--- NOTE | 2020-08-12 10:31 | DIET.PN ---
Addendum entered by Rosa Lua 08/26/20 10:32: Phone call c pt who is now 30w gestation. Pt has had 3 FBG over 90 c most in 80s discussed having evening snack secondary to aria effect. Most 1 and 2h PP are within range, discussed adding 10min walk if PP are over range. 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 Original Note: Dietary Progress Note Assessment: 30y [address] visit for new dx of gestational diabetes. Pt is 28w 4d with second . Pt has gained 29# so far. Pt is nurse at [employer]. Pt has glucometer and log during this visit, pt started tracking BG last night. Readings are <90 FBG and <100 for 1hr PP. Labs: FBG 86, GTT1hr 170, GTT2hr 157 H Nutrition Diagnosis: altered laboratory values (GTT) r/t endocrine dysfunction in aeb pt GTT2hr elevated to 157 c dx GDM, pt has gained 29# so far this , pt reports intake refined carbohydrate foods. Interventions: 1. Educated pt on glucometer use and testing protocol. Pt to test FBG daily with goal <95 and for the first few weeks test 1h PP after the start of each meal with goal <140. Once pt has more knowledge and data, pt can pick 1-2 meals to test after as long as numbers are trending in good range. 2. Educated pt on Carbohydrate Consistent Diet setting meal levels to 30-45g and snacks to 15-30g. Provided pt c Gestational DM info sheet and meal plan as well as Carbohydrate Counting packet. Discussed balanced plate eating for meals and snacks to ensure intake 1/4 PRO, 1/4 CHO, and 1/2 non-starchy veg/fruit. Answered pt questions regarding fat, refined grains, paring foods. Discussed ways to modify meals if PP BG values are high or if FBG levels >95. 3. Practiced food label reading and manipulating numbers on packaged foods. Answered pt questions on topic. 4. Discussed role of physical activity on BG levels. Recc pt walk 30 min daily targeting after meals, even if in increments of 10min at a time. Monitoring/Evaluations: Scheduled phone consult in 2w to assess need for further RD visits and to problem solve any issues in meal plan.
== END ==
PROVIDERS: PCP Family Medicine; Referring Provider Nurse Practitioner Obstetrics & Gynecology; Visit Provider Nurse Practitioner Obstetrics & Gynecology
DX: O24.419 Gestational diabetes mellitus in pregnancy, unspecified control (principal); Z71.3 Dietary counseling and surveillance
CPT/HCPCS: 97802

== ENCOUNTER 2020-09-05 09:02 | Emergency (ER) | payer BC, SELFPAY ==
[2020-09-05 09:11] VITALS: BP 120/84; PULSE 106; RESP 18; TEMP 37; O2SAT 98
[2020-09-05] MEDS: ONDANSETRON 4 MG/2 ML INJ (09:19)
--- NOTE | 2020-09-05 09:24 | ED.NAVMDI ---
HPI - Nausea/Vomiting/Diarrhea General Chief complaint: Nausea/Vomiting/Diarrhea Stated complaint: 32 wks and thinks food poisoning Time Seen by Provider: 09/05/20 09:23 Source: patient Mode of arrival: Ambulatory Limitations: no limitations History of Present Illness HPI Narrative: this is a 30-year-old female who is at 32 weeks with known gestational diabetes. Patient states she was recently started on long-acting insulin. She states her morning glucose was 102. She comes in today because she started having nausea, vomiting and diarrhea at about midnight. She has had 4 episodes of emesis. Patient states she has had multiple episodes of diarrhea but with no black or bloody stools. She denies any significant abdominal pain. She has had some mild cramping which she describes as [place] type contractions. She has had some mild low back discomfort. Patient denies any fevers. She denies any urinary frequency, dysuria sense of urgency. She has not had any vaginal fluid or bleeding. Patient states she is only on vitamins otherwise. No known drug allergies. No prior surgeries. She states that her child who is 18 months was having similar symptoms just about the same time so she suspects possibly food poisoning. Related Data Home Medications Medication Instructions Recorded Confirmed prenat.vits,bisi,[id number]-lvslw 1 tab PO DAILY 10/27/19 10/27/19 Previous Rx's Medication Instructions Recorded metoclopramide HCl [Reglan] 10 mg PO Q6H PRN #10 tab 09/05/20 Allergies Allergy/AdvReac Type Severity Reaction Status Date / Time No Known Drug Allergies Allergy Verified 10/27/19 09:27 Review of Systems Review of Systems ROS Unobtainable: All systems reviewed & are unremarkable except as noted in HPI and below Patient History Medical History (Updated 09/05/20 @ 09:31 by Sidra Ng DO) Abnormal Pap smear of cervix (~2012) Amniotic cavity/membrane problem suspected but not found Chlamydia (~2012) Fracture of wrist (~2001) H/O iron deficiency anemia Headache (~2008) Heavy menstrual period (~2004) Herpes (~2012) Human papilloma virus (~2012) Interstitial cystitis (~2013) Migraines (~2008) Normal vaginal delivery UTI (urinary tract infection) (~1991) Surgical History Anesthesia Status post loop electrosurgical excision procedure (LEEP) of cervix (08/19/14) Family History Father Age: 70 Mental health problem Sister Age: 33 Mental health problem Grandfather No problems noted. Social History marital status: occupational status: employed ([employer]) Smoking Status: Never smoker alcohol intake: current substance use type: does not use Smoking Status: Never smoker alcohol intake frequency: 0-2 drinks per day Substance Use Type: does not use Exam Narrative Exam Narrative: GENERAL: Alert and oriented x three, Well-nourished female in mild distress. HEENT: Head normocephalic, atraumatic, EOMI, pupils reactive, face symmetric, moist mucous membranes NECK: Supple, full range of motion CARDIOVASCULAR: Regular rate and rhythm without murmurs, rubs or gallops. No JVD. RESPIRATORY: Breath sounds equal bilaterally, no wheezes rales or rhonchi. ABDOMEN: Soft, nontender. Normoactive bowel sounds all 4 quadrants. No guarding or rebound, rigidity, no mass. Gravid size appropriate for dates. : No CVA tenderness EXTREMITIES: Normal range of motion, mild bilateral lower extremity edema. Neurovascularly intact NEUROLOGICAL: Cranial nerves II through XII grossly intact. Moving all extremities SKIN: Warm, dry, no petechiae, no rashes or lesions. Initial Vital Signs Initial Vital Signs: Vital Signs Temperature 98.6 F 09/05/20 09:11 Pulse Rate 106 H 09/05/20 09:11 Respiratory Rate 18 09/05/20 09:11 Blood Pressure 120/84 09/05/20 09:11 Pulse Oximetry 98 09/05/20 09:11 Course Orders Ordered: Discontinued Medications Sodium Chloride (Normal Saline 0.9%) 1,000 mls @ 1,000 mls/hr IV BOLUS ONE Stop: 09/05/20 10:18 Last Infusion: 09/05/20 10:24 Dose: 0 mls/hr Documented by: Admin: 09/05/20 09:27 Dose: 1,000 mls/hr Documented by: MICKEY Sodium Chloride (Normal Saline 0.9%) 1,000 mls @ 1,000 mls/hr IV BOLUS ONE Stop: 09/05/20 10:26 Last Infusion: 09/05/20 11:26 Dose: 0 mls/hr Documented by: Admin: 09/05/20 10:24 Dose: 1,000 mls/hr Documented by: MICKEY Metoclopramide HCl (Metoclopramide 10 Mg/2 Ml Inj) 5 mg IV NOW ONE Stop: 09/05/20 10:59 Last Admin: 09/05/20 11:06 Dose: 5 mg Documented by: MICKEY Ondansetron HCl (Ondansetron 4 Mg/2 Ml Inj) 4 mg IV NOW ONE Stop: 09/05/20 09:28 Last Admin: 09/05/20 09:30 Dose: Not Given Documented by: MICKEY Vital Signs Vital signs: Vital Signs - 8 hr 09/05/20 09:11 Temperature 98.6 F Pulse Rate 106 H Respiratory Rate 18 Blood Pressure 120/84 Pulse Oximetry 98 MDM - Nausea/Vomiting/Diarrhea Lab Data Attestation: I reviewed the patient's lab results. Result diagrams: 09/05/20 09:13 09/05/20 09:13 Labs: Lab Results 09/05/20 09/05/20 09/05/20 Range/Units 09:13 09:13 10:12 WBC 11.2 H (4.5-11.0) X10^3/uL RBC 4.87 (4.0-5.2) X10^6/uL Hgb 15.3 (12.0-16.0) g/dL Hct 45.8 (36-46) % MCV 94.0 (80-100) fL MCH 31.5 (26-34) PG MCHC 33.5 (30-36) % RDW 12.3 (11.6-14.8) % Plt Count 144 L (150-400) X10^3/uL Neut % (Auto) 91.3 H (50-75) % Lymph % (Auto) 3.9 L (25-40) % [place] % (Auto) 4.5 (3-14) % Eos % (Auto) 0.1 L (2-4) % Baso % (Auto) 0.2 (0-2) % Neut # (Auto) 64203 H (2573-2496) /uL Lymph # (Auto) 400 L (2624-0475) /uL [place] # (Auto) 500 (0-900) /uL Eos # (Auto) 0 (0-450) /uL Baso # (Auto) 0 (0-100) /uL Sodium 136 L (137-145) mmol/L Potassium 3.9 (3.4-5.1) mmol/L Chloride 106 (98-107) mmol/L Carbon Dioxide 23 (22-32) mmol/L BUN 10 (7-17) mg/dL Creatinine 0.44 L (0.52-1.04) mg/dL Estimated GFR > 60.0 (>60) mL/min BUN/Creatinine Ratio 22.7 H (6-22) Glucose 109 H (70-100) mg/dL Calcium 9.1 (8.4-10.2) mg/dL Total Bilirubin 0.5 (0.2-1.3) mg/dL AST 27 (14-36) IU/L ALT 16 (<35) IU/L Alkaline Phosphatase 86 (38-126) U/L Total Protein 7.2 (6.3-8.2) g/dL Albumin 3.7 (3.5-5.0) g/dL Globulin 3.5 (1.7-4.1) g/dL Albumin/Globulin Ratio 1.1 (1.0-2.8) Lipase 233 (23-300) U/L Urine Color Yellow Urine Appearance Clear Urine pH 5.5 (4.5-8.0) Ur Specific [place] 1.025 (1.000-1.035) Urine Protein 1+ H (Negative) Urine Glucose (UA) Negative (Negative) g/dL Urine Ketones 3+ H (NEGATIVE) Urine Occult Blood Negative (Negative) Urine Nitrate Negative (Negative) Urine Bilirubin Negative (NEGATIVE) Urine Urobilinogen 0.2 (0.2) E.U./dL Ur Leukocyte Esterase Negative (NEGATIVE) Urine RBC None seen (0-5/HPF) Urine WBC 1-5/hpf (0-5/HPF) Ur Squamous Epith Cells 1-5 /hpf (0-5/HPF) Urine Bacteria Few (2-10) H (None) Urine Mucus 2+ H (Negative) Ur Culture Indicated? Cult not indicated Point of Care Testing Glucose POC 102 MDM Narrative Medical decision making narrative: this is a 30-year-old female comes with 32 weeks , known gestational diabetes and nausea and vomit on acute onset overnight on the same time frame is her child. Patient was given 2 L of fluids, Zofran but still continued to feel nauseated was given Reglan as well. Patient's labs showed slightly low platelets but no other major abnormalities. Patient has not been hypertensive, she does not have significant onset of edema. She is not hyper. She was seen and had her NST here in the department and was seen by her provider Katie Cohen who cleared her from a obstetric standpoint. Patient was noted some bacteria in her urine, she was not have any symptoms so far sore waiting for urine culture. Patient did recontact and noted she was started have some symptoms of prescription for Keflex 500 mg b.i.d. x5 days was called in and she began this evening. Discharge Plan Departure Patient Disposition: Home Clinical Impression: Nausea vomiting and diarrhea, Instructions: DI for Vomiting -- Adult Activity Restrictions/Additional Instructions: Follow up in the next day or two if you are not feeling back to normal. You may try Reglan 1 tab every 6 hours as needed for nausea if your home zofran is not helpful. Your urine shows some bacteria but no other clear signs of infection. Culture is pending. Prescription to [facility] in [place] return for fevers, persistent nausea and vomiting, black or bloody stools new abdominal pain, cramping, flank pain, vaginal bleeding or discharge, lightheadedness or passing out, new chest pain or shortness of breath or other new or concerning symptoms Prescriptions: New metoclopramide HCl [Reglan] 10 mg tablet 10 mg PO Q6H PRN (Reason: nausea and vomiting) Qty: 10 RF: 0 No Action prenat.vits,bisi,[id number]-[id number] Tablet 1 tab PO DAILY RF: 0 Referrals: Kailyn Jackman DO [Primary Care Provider] -
[2020-09-05] MEDS: SODIUM CHLORIDE 0.9% 1,000 ML 1000 ML IV ×2 (09:27→10:24)
[2020-09-05 09:34] LABS: Add Manual Diff / Slide Review NO; Basophils Absolute Auto 0 /uL (0-100); Basophils Percent Auto 0.2 % (0-2); Eosinophils Absolute Auto 0 /uL (0-450); Eosinophils Percent Auto 0.1 % (2-4); Hematocrit 45.8 % (36-46); Hemoglobin 15.3 g/dL (12.0-16.0); Lymphocytes Absolute Auto 400 /uL (1100-4500); Lymphocytes Percent Auto 3.9 % (25-40); Mean Corpuscular HGB Conc 33.5 % (30-36); Mean Corpuscular Hemoglobin 31.5 PG (26-34); Monocytes Absolute Auto 500 /uL (0-900); Monocytes Percent Auto 4.5 % (3-14); Neutrophils Absolute Auto 10200 /uL (1500-7000); Neutrophils Percent Auto 91.3 % (50-75); Platelet Count 144 X10^3/uL (150-400); Red Blood Cell Count 4.87 X10^6/uL (4.0-5.2); Red Cell Distribution Width 12.3 % (11.6-14.8); White Blood Cell Count 11.2 X10^3/uL (4.5-11.0)
[2020-09-05 09:39] LABS: Alanine Aminotransferase 16 IU/L (<35); Albumin 3.7 g/dL (3.5-5.0); Albumin Globulin Ratio 1.1 (1.0-2.8); Alkaline Phosphatase 86 U/L (38-126); Aspartate Aminotransferase 27 IU/L (14-36); BUN Creatinine Ratio 22.7 (6-22); Bilirubin Total 0.5 mg/dL (0.2-1.3); Blood Urea Nitrogen 10 mg/dL (7-17); Calcium 9.1 mg/dL (8.4-10.2); Carbon Dioxide 23 mmol/L (22-32); Chloride 106 mmol/L (98-107); Estimated Glomerular Filt Rate > 60.0 mL/min (>60); Globulin 3.5 g/dL (1.7-4.1); Glucose 109 mg/dL (70-100); HEMOLYSIS < 15 (0-50); Lipase 233 U/L (23-300); Potassium 3.9 mmol/L (3.4-5.1); Sodium 136 mmol/L (137-145); Total Protein 7.2 g/dL (6.3-8.2)
--- NOTE | 2020-09-05 09:51 | PC.NURSE ---
pelt salter in ED with non stress test machine. pt tolerating well. NS infusing
--- NOTE | 2020-09-05 10:08 | PM.PROC.1 ---
Procedures Date/Time Date of procedure: 09/05/20 Time of procedure: 09:40 General Procedure description: Reactive NST in ER: FHR baseline 140bpm, moderate variability, acceleration present, decelerations absent. No concern for labor. Cervical exam not indicated. Complications: none
[2020-09-05 10:20] LABS: RBC Urine None Seen (0-5/HPF)
[2020-09-05 10:21] LABS: Appearance Urine UA CLEAR; Bilirubin Urine UA NEGATIVE (NEGATIVE); Color Urine UA YELLOW; Glucose Urine UA NEGATIVE (Negative); Ketones Urine UA 3+ (NEGATIVE); Leukocyte Esterase Urine UA NEGATIVE (NEGATIVE); Nitrite Urine UA NEGATIVE (Negative); Occult Blood Urine UA NEGATIVE (Negative); Protein Urine UA 1+ (Negative); Specific Gravity Urine UA 1.025 (1.000-1.035); Urobilinogen Urine UA 0.2 E.U./dL (0.2)
[2020-09-05 10:24] LABS: pH Urine UA 5.5 (4.5-8.0)
[2020-09-05 10:33] LABS: Bacteria Urine Few (2-10); Mucus Urine 2+ (Negative); Squamous Epithelial Cell Urine 1-5 /HPF (0-5/HPF); WBC Urine 1-5/HPF (0-5/HPF)
[2020-09-05 10:34] LABS: Culture Indicated Urine Cult Not Indicated
[2020-09-05] MEDS: METOCLOPRAMIDE 10 MG/2 ML INJ 5 MG IV (11:06)
[2020-09-05 11:22] VITALS: BP 110/64; PULSE 83; RESP 83; O2SAT 99
== END 2020-09-05 12:08 | disposition home or self-care (01) ==
PROVIDERS: Emergency Provider Emergency Medicine; PCP Family Medicine
DX: O21.2 Late vomiting of pregnancy (principal); O26.893 Other specified pregnancy related conditions, third trimester; R19.7 Diarrhea, unspecified; O24.414 Gestational diabetes mellitus in pregnancy, insulin controlled; Z3A.32 32 weeks gestation of pregnancy
CPT/HCPCS: 36415; 80053; 81001; 83690; 85025; 96361; 96374; 99284; J2405; J2765

== ENCOUNTER → 2020-10-04 09:00 | Outpatient (CLI) | payer BC, SELFPAY ==
--- NOTE | 2020-10-04 | DI.US.S_ITS ---
PROCEDURE: US OB LIMITED INDICATIONS: GROWTH AND BIOPHYSICAL PROFILE. GESTATIONAL DIABETES. OUTSIDE/PRIOR DATING DATA: Last menstrual period (LMP): Unknown . LMP-based estimated date of delivery (BETH): Unknown . First dating scan (date and location): 03/22/2020 . Estimated date of delivery (BETH) from first dating scan: 10/31/2020 . TECHNIQUE: Real-time scanning was performed of the fetus, with image documentation and biometric measurements. Biophysical profile was also obtained. Endovaginal scanning: Not obtained COMPARISON: [facility], OB >= 14 WEEKS FETUS, 06/14/2020, 9:09. FINDINGS: General: A single living intrauterine gestation is present. Presentation: Vertex. Placenta: Placental position is posterior , without previa. Amniotic fluid index: 14.1 cm, normal range is 5-24 cm. heart rate: 175 beats per minute. Maternal cervical canal: Not well seen at late stage of Cord insertion is noted to be 2.2 cm from the superior placental edge. biometrics: Biparietal diameter: 9.2 cm, 37 weeks 4 days Head circumference: 32.8 cm, 37 weeks 2 days Abdominal circumference: 30.3 cm, 34 weeks 2 days Femur length: 7.0 cm, 36 weeks 0 days Estimated gestational age from initial scan: not applicable. Composite gestational age from present scan: 36 weeks 2 days Estimated weight and percentile: 2663 g, 31st percentile Measurement variability for biometric dating: +/- 7 days from 14 weeks to 15 weeks 6 days gestation, +/- 10 days from 16 weeks to 21 weeks 6 days gestation, +/- 2 weeks from 22 weeks to 27 weeks 6 days gestation, +/- 3 weeks for 28 weeks gestation or later. weight reference: 4500 g or EFW >90/95% is considered macrosomia or large for gestational age. EFW <10% is small for gestational age. EFW 5% or less is considered intra-uterine growth restriction. Biophysical profile: Tone: 2 points. Movement: 2 points. Respiration: 2 points. Largest pocket of fluid: 2 points. IMPRESSION: 1. Living late 3rd trimester intrauterine , ultrasound age is 1 day greater than clinical age based on initial ultrasound. 2. Biophysical profile is 8/8. 3. Cord insertion is 2.2 cm from the superior placental edge. Dictated by: Haseeb Rae M.D. on 10/04/2020 at 17:00 Approved by: Haseeb Rae M.D. on 10/04/2020 at 17:05
== END ==
PROVIDERS: PCP Family Medicine; Referring Provider Nurse Practitioner Obstetrics & Gynecology; Visit Provider Nurse Practitioner Obstetrics & Gynecology
DX: O09.93 Supervision of high risk pregnancy, unspecified, third trimester (principal); O24.415 Gestational diabetes mellitus in pregnancy, controlled by oral hypoglycemic drugs; Z3A.36 36 weeks gestation of pregnancy
CPT/HCPCS: 76815; 76819

== ENCOUNTER → 2020-10-05 12:20 | Outpatient (ROUT) | payer BC, SELFPAY | PROVIDERS: PCP Family Medicine; Visit Provider Nurse Practitioner Obstetrics & Gynecology | DX: Z34.90 Encounter for supervision of normal pregnancy, unspecified, unspecified trimester (principal); Z36.85 Encounter for antenatal screening for Streptococcus B; Z3A.36 36 weeks gestation of pregnancy | CPT/HCPCS: 87081 ==

== ENCOUNTER → 2020-10-18 09:16 | Outpatient (CLI) | payer BC, SELFPAY ==
--- NOTE | 2020-10-18 | DI.US.S_ITS ---
PROCEDURE: US OB LIMITED INDICATIONS: BIOPHYSICAL PROFILE AND GROWTH OUTSIDE/PRIOR DATING DATA: Last menstrual period (LMP): Unknown. LMP-based estimated date of delivery (BETH): Unknown. First dating scan (date and location): 03/22/2020. Estimated date of delivery (BETH) from first dating scan: 10/31/2020. TECHNIQUE: Real-time scanning was performed of the fetus, with image documentation and biometric measurements. Biophysical profile was also obtained. Endovaginal scanning: Not performed. COMPARISON: [facility], OB LIMITED, 10/04/2020, 9:37. FINDINGS: General: A single living intrauterine gestation is present. Presentation: Vertex. Placenta: Placental position is posterior, without previa. Amniotic fluid index: 16.6 cm, normal range is 5-24 cm. heart rate: 136 beats per minute. Maternal cervical canal: Not well seen. biometrics: Biparietal diameter: 9.6 cm, 39 weeks 0 days Head circumference: 34.4 cm, 39 weeks 5 days Abdominal circumference: 32.9 cm, 36 weeks 5 days Femur length: 7.4 cm, 38 weeks 0 days Estimated gestational age from initial scan: 38 weeks 1 day Composite gestational age from present scan: 38 weeks 3 days Estimated weight and percentile: 3271 g, 51 percentile Measurement variability for biometric dating: +/- 7 days from 14 weeks to 15 weeks 6 days gestation, +/- 10 days from 16 weeks to 21 weeks 6 days gestation, +/- 2 weeks from 22 weeks to 27 weeks 6 days gestation, +/- 3 weeks for 28 weeks gestation or later. weight reference: 4500 g or EFW >90/95% is considered macrosomia or large for gestational age. EFW <10% is small for gestational age. EFW 5% or less is considered intra-uterine growth restriction. Biophysical profile: Tone: 2 points. Movement: 2 points. Respiration: 2 points. Largest pocket of fluid: 2 points. IMPRESSION: 1. [place] living intrauterine at 38 weeks 3 days based on today's ultrasound. This is concordant with the prior dating. Fetus is in the 51 percentile for weight. 2. Normal placenta and amniotic fluid. 3. Normal biophysical profile. Score 8/8. Dictated by: Raman Muniz M.D. on 10/18/2020 at 11:02 Approved by: Raman Muniz M.D. on 10/18/2020 at 11:06
== END ==
PROVIDERS: PCP Family Medicine; Referring Provider Nurse Practitioner Obstetrics & Gynecology; Visit Provider Nurse Practitioner Obstetrics & Gynecology
DX: O24.415 Gestational diabetes mellitus in pregnancy, controlled by oral hypoglycemic drugs (principal); O09.93 Supervision of high risk pregnancy, unspecified, third trimester; Z3A.38 38 weeks gestation of pregnancy
CPT/HCPCS: 76815; 76819

== ENCOUNTER 2020-10-21 16:09 | Outpatient (CLI) | payer BC, SELFPAY ==
--- NOTE | 2020-10-21 16:50 | P.TNLD_ITS ---
Visit Information Visit Information Date of evaluation: 10/21/20 Primary OB Provider: Katie Adler On-call OB Provider: Katie Adler Reason for Evaluation: Yes non-stress test non-stress test reason: diabetes (GDMA2) Comments/Additional reasons for admission: 30YO @ 55mwd9k. Feeling well with no concerns. Routine testing for GDMA2, requiring 8 units of insulin QHS. Lots of FM and irregular contractions. No vaginal bleeding or leaking of fluid. Vital Signs Vital Signs: BP 122/80mmHg, HR 82bpm, T 36.0C Temporal [facility] Medical History (Updated 10/21/20 @ 17:32 by Katie Adler CNM) Abnormal Pap smear of cervix (~2012) Amniotic cavity/membrane problem suspected but not found Chlamydia (~2012) Fracture of wrist (~2001) H/O iron deficiency anemia Headache (~2008) Heavy menstrual period (~2004) Herpes (~2012) Human papilloma virus (~2012) Interstitial cystitis (~2013) Migraines (~2008) Normal vaginal delivery UTI (urinary tract infection) (~1991) Surgical History Anesthesia Status post loop electrosurgical excision procedure (LEEP) of cervix (08/19/14) Family History Father Age: 70 Mental health problem Sister Age: 33 Mental health problem Grandfather No problems noted. Social History marital status: occupational status: employed ([employer]) Smoking Status: Never smoker alcohol intake: current substance use type: does not use Review of Systems Review of Systems ROS: Yes All systems reviewed with the patient and are negative except as otherwise documented Exam Vital Signs (past 8 hours): see above Presentation: vertex Evaluation Evaluation Baseline heart rate: 125 Variability: Moderate (11-25) monitor accelerations: Present Monitor Decelerations: Absent Contraction Frequency (minutes): 0 Uterine Contraction Intensity: Mild Category of Tracing: Reactive Comments: CE deferred Diagnosis, Plan/Disposition Final Diagnosis (1) Gestational diabetes requiring insulin: Status: Acute Problem details: well managed Plan/Disposition Plan: Discharge to home with routine labor precautions. Return 10/25/20 @ 0700 for previously schedule IOL. OB Disposition: home
== END 2020-10-21 16:50 | disposition home or self-care (01) ==
LOC: LABOR 17:05 → OB 10-22 08:44
PROVIDERS: PCP Family Medicine; Referring Provider Nurse Practitioner Obstetrics & Gynecology; Visit Provider Nurse Practitioner Obstetrics & Gynecology
DX: O24.414 Gestational diabetes mellitus in pregnancy, insulin controlled (principal); Z3A.38 38 weeks gestation of pregnancy
CPT/HCPCS: 59025; G0378; G0379

== ENCOUNTER 2020-10-25 06:57 | Inpatient (IN) | payer BC, SELFPAY ==
--- NOTE | 2020-10-25 07:20 | P.HPOB_ITS ---
OB HPI Date/Time Date of admission: 10/25/20 Date Patient Seen: 10/25/20 Time Patient Seen: 07:20 History of Present Condition Chief complaint: OBS OF LABOR : 4 Para: 2 Estimated Date of Delivery: 11/01/20 Estimated Gestational Age (weeks): 39 Narrative: Denise Ledezma is a 30 year old female @ 39wks by LMP and early US who presents for induction of labor for GDMA2. has been complicated by gestational diabetetes, well managed on insulin (Levemir 8 units QHS). is otherwise uncomplicated with reassuring testing. Trish desires a low intervention . 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 Indications Indication for induction OB: gestational diabetes History of Present care: good care, initiated at week # (initiated care at week 7), number of visits (17) and pounds weight gain (25 lbs) Dating criteria: LMP confirmed by 1st trimester US Ultrasounds: normal 1st trimester US and normal mid trimester US Obstetrical complications: gestational diabetes (GDMA2) Medical complications: none Preadmission Labs Blood type: B (+) positive -: Antibody screen: negative, GBS status: negative, HBsAG: negative, HIV: negative, HSV 1: negative, HSV 2: positive and RPR/VDLR: negative -: Chlamydia screen: not detected and Gonorrhea screen: not detected -: Rubella: immune HCT: 40.3 HCAB: negative PAP: Abnormal (Abnormal pap 12/2017 followed by normal colposcopy ) Cell-free DNA: negative/normal-Male Narrative: Failed 2 hr GTT. Fasting 86, Glu 1 hr 170, Glu 2 hr 157 Prior (ies) History: X1, SAB x 2 Evaluation Evaluation Baseline heart rate: 125 Variability: Moderate (11-25) monitor accelerations: Present Monitor Decelerations: Absent Contraction Frequency (minutes): 15 Uterine Contraction Intensity: Mild Category of Tracing: Reactive Status: Category l Comments: Trish is remy irregularly. SVE deferred. Last CE in clinic /-3 [facility] Medical History Abnormal Pap smear of cervix (~2012) Amniotic cavity/membrane problem suspected but not found Chlamydia (~2012) Fracture of wrist (~2001) H/O iron deficiency anemia Headache (~2008) Heavy menstrual period (~2004) Herpes (~2012) Human papilloma virus (~2012) Interstitial cystitis (~2013) Migraines (~2008) Normal vaginal delivery UTI (urinary tract infection) (~1991) Surgical History Anesthesia Status post loop electrosurgical excision procedure (LEEP) of cervix (08/19/14) Family History Father Age: 70 Mental health problem Sister Age: 33 Mental health problem Grandfather No problems noted. Social History marital status: occupational status: employed ([employer]) Smoking Status: Never smoker alcohol intake: current substance use type: does not use Meds Home Medications and Allergies Home Medications Medication Instructions Recorded Confirmed Type prenat.vits,bisi,[id number] 1 tab PO DAILY 10/27/19 10/25/20 History metoclopramide HCl 10 mg tablet 10 mg PO Q6H PRN #10 tab 09/05/20 10/25/20 Rx (Reglan) acyclovir 400 mg tablet mg TID 10/25/20 History insulin detemir U-100 100 unit/mL unit SUBCUT BEDTIME 10/25/20 History (3 mL) subcutaneous pen (Levemir FlexTouch U-100 Insulin) Allergies Allergy/AdvReac Type Severity Reaction Status Date / Time No Known Drug Allergies Allergy Verified 10/27/19 09:27 Exam Vital Signs (past 8 hours): BP- 111/62 mmHg, HR- 81 bpm, T- 97.9F temporal Presentation: vertex Objective Labs Result Diagrams: 10/25/20 07:30 Assessment and Plan Assessment and Plan Assessment and Plan narrative: A: Term Primipara IOL for GDMA2 No indication for GBS prophylaxis 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 POC BGs postparandial and will treat breakthrough elevated BGs, as needed. Labor support PRN> Will consider AROM at next check. Reassess in 4 hours or sooner, PRN.
[2020-10-25 07:57] LABS: Add Manual Diff / Slide Review NO; Basophils Absolute Auto 0 /uL (0-100); Basophils Percent Auto 0.5 % (0-2); Eosinophils Absolute Auto 0 /uL (0-450); Eosinophils Percent Auto 0.5 % (2-4); Hematocrit 40.9 % (36-46); Hemoglobin 13.7 g/dL (12.0-16.0); Lymphocytes Absolute Auto 1800 /uL (1100-4500); Lymphocytes Percent Auto 21.6 % (25-40); Mean Corpuscular HGB Conc 33.4 % (30-36); Mean Corpuscular Hemoglobin 31.7 PG (26-34); Mean Corpuscular Volume 95.1 fL (80-100); Monocytes Absolute Auto 500 /uL (0-900); Monocytes Percent Auto 6.6 % (3-14); Neutrophils Absolute Auto 5800 /uL (1500-7000); Neutrophils Percent Auto 70.8 % (50-75); Platelet Count 155 X10^3/uL (150-400); Red Cell Distribution Width 12.6 % (11.6-14.8); White Blood Cell Count 8.2 X10^3/uL (4.5-11.0)
[2020-10-25] MEDS: LACTATED RINGERS 1,000 ML 100 ML IV (07:59)
[2020-10-25] MEDS: OXYTOCIN PREMIX 30 UNIT/500 ML PLAST..BAG IV (08:00)
[2020-10-25 08:20] VITALS: BP 111/62
[2020-10-25] MEDS: CALCIUM CARBONATE 500 MG TAB 1000 MG PO ×2 (08:29→13:56)
[2020-10-25 08:59] LABS: COVID19 - ADMIT (NP swab/PCR) Negative (Negative)
--- NOTE | 2020-10-25 12:24 | PM.OBPNLAB ---
Date/Time Date Patient Seen: 10/25/20 Time Patient Seen: 11:10 Pain Control Comments: Trish is standing at bedside with and friend at bedside. Trish states contractions are not strong, talking through them. VS: BP- 109/68 mmHg, HR- 63, T- 97.7F temporal Pelvic Exam Dilation (cm): 4 Effacement (%): 70 station: -3 (ballotable ) Amniotic membrane status: Intact Comments: fingers palpated by head Contractions Date/Time contractions began: 844 Contractions on admission: irregular Monitor mode: External Pitocin rate (mU/min): 5 Contraction frequency (min): 4 Contraction duration (min): 2 Contraction pattern: Regular Contraction intensity: Mild Status status: Category l Heart Rate Baseline: 125 Monitor Accelerations: Present Monitor Decelerations: Absent Monitor Variability: Moderate Assessment and Plan Assessment: induction ongoing Plan: continuous present management Comments: Recommend continuing to increase pitocin with upright positioning. Upright positions encouraged. Will reassess in 2-4 hrs or sooner if indicated. Plan to AROM when baby is well applied to cervix and hand is not in the way. Trish is in agreement.
--- NOTE | 2020-10-25 13:45 | PM.OBPNLAB ---
Date/Time Date Patient Seen: 10/25/20 Time Patient Seen: 13:30 Pain Control Comments: Trish is laboring in bed. Contractions are more intense, breathing well during contractions. VS: BP-135/82 mmHg, HR- 90 BPM, T- 36.7C temporal Pelvic Exam Dilation (cm): 4 Effacement (%): 90 station: -2 Amniotic membrane status: Ruptured (clear) Comments: AROM 1339 Contractions Monitor mode: External Pitocin rate (mU/min): 9 Contraction frequency (min): 3 Contraction duration (min): 2 Contraction pattern: Regular Contraction intensity: Moderate Status status: Category l Heart Rate Baseline: 125 Monitor Accelerations: Present Monitor Decelerations: Absent Monitor Variability: Moderate Assessment and Plan Assessment: active labor Plan: continuous present management Comments: Pitocin was cut in half immediately after AROM. Trish is getting in tub to labor with and friend at side. Discontinue pitocin. Intermittent auscultation. Continuous labor suuport. Reassess in 2 hrs or sooner PRN.
--- NOTE | 2020-10-25 17:49 | PM.OBPRVD ---
Events: Gestational Diabetes (insulin controlled) Labor & Delivery Delivery date: 10/25/20 Intrapartal Events: None Cervical ripening method: none Induction method: per pitocin protocol Delivery augmentation: rupture of membranes Delivery monitor: external FHT and external uterine Route of delivery: Episiotomy description: None L&D Laceration Description: None Estimated blood loss (mL): 50 Anesthesia Type: None Narrative: Trish progressed to complete and began pushing spontaneously while standing at side of bed and was assisted onto bed on right side. FHR was reassuring by intermittent auscultation throughout pushing. She pushed well on her right side and delivered a vigorous baby boy over an intact perineum. No nuchal cord. Shoulders delivered easily. Baby was placed skin to skin on Trish's chest. After 60 seconds cord was double clamped and then cut by FOB. Cord blood was collected in a hold tube. Apgars were 9 and 9. Active management of the third stage was initiated. Placenta delivered spontaneously and intact 13 minutes later. QBL was 50 mL. Baby put to breast and began nursing shortly after. Baby 1: gender: Male Presentation: vertex Position: Right Occiput Anterior Placenta delivery description: Spontaneous Cord Vessel Description: 3 Vessels score (1 min): 9 score (5 min): 9 weight: 2.975 kg Plan for aftercare: Routine care
[2020-10-25] MEDS: KETOROLAC 30 MG/ML VIAL IV (18:17)
[2020-10-25] MEDS: DERMOPLAST SPRAY 20% 60 ML 1 SPRAY TOP (18:20)
[2020-10-25] MEDS: INSULIN GLARGINE 100 UNIT/ML 3ML PEN SUBCUT (21:15)
[2020-10-26] MEDS: IBUPROFEN 600 MG TABLET PO ×2 (01:01→08:26)
[2020-10-26] MEDS: ACETAMINOPHEN 325 MG TABLET 650 MG PO (08:27)
--- NOTE | 2020-10-26 11:02 | P.DS_ITS ---
Discharge Providers Provider Date of admission: 10/25/20 06:57 Discharge Date: 10/26/20 Primary care physician: Kailyn Jackman DO Consults: 10/26/20 17:48 Consult to Vocational Rehabilitation Teacher Routine Comment: Discharge provider: Katie Adler CNM Summary Hospital Course Date Patient Seen: 10/26/20 Time Patient Seen: 11:02 Diagnoses: 080 Hospital Course: Trish is day 1, voiding, ambulating and independently. Tolerating a general diet. Pain is well controlled with PO medication. Vaginal bleeding is light without clots. She is eager for discharge to home. Peripartum Data Delivery Method: Natural Vaginal Laceration Description: None Episiotomy description: None complications: none [place] 1: Gender: Male Disposition of : home Discharge Diagnosis (1) Encounter for full-term uncomplicated delivery: Start Date: 10/25/20 Start Time: 07:00 Status: Acute Status at Discharge Cognitive/behavioral status at discharge: oriented and calm Functional status at discharge: independent ambulation Overall status at discharge: patient is back to baseline Time Spent with Patient Time attestation: Total time spent providing and/or coordinating discharge services: Time spent: Less than 30 minutes Objective Labs Result Diagrams: 10/25/20 07:30 Exam Vital Signs (past 8 hours): BP 100/63mmHg, HR 69bpm, RR 16/min, T 98.4F Temporal Other: Fundus firm @ U-1, lochia light, no clots, perineum intact Discharge Plan Discharge Plan Patient Disposition: Home Discharge orders & Medications Prescriptions: New ibuprofen 600 mg Tablet 600 mg PO Q6HR PRN (Reason: Pain, Mild (1-3)) 14 Days Qty: 60 RF: 0 Continued prenat.vits,bisi,[id number] Tablet 1 tab PO DAILY RF: 0 metoclopramide HCl [Reglan] 10 mg tablet 10 mg PO Q6H PRN (Reason: nausea and vomiting) Qty: 10 RF: 0 acyclovir 400 mg tablet 400 mg PO TID RF: 0 Levemir FlexTouch U-100 Insuln 100 unit/mL (3 mL) insulin pen 8 unit SUBCUT BEDTIME RF: 0 Follow up/Referrals: Kailyn Jackman DO [Primary Care Provider] - Nayely,Katie T, CNM [Advanced Carpenter Helper] - (Follow-up by telehealth 11/08/20 @ 1:45pm Follow-up in office 12/06/20 @ 11:00am) Diet/Activity/Treatments Diet: Regular Activity: pelvic rest x 6 weeks Skin/Wound/Dressing Care Report to your healthcare provider any signs of infection, such as:: chills, fever, increased pain, unusual drainage and unusual redness Visit Report/Discharge Packet Instructions: Depression Discharge Data Primary Care Provider: Kailyn Jackman
[2020-10-26 13:01] VITALS: BP 109/60; PULSE 79; RESP 12; TEMP 37
== END 2020-10-26 13:45 | disposition home or self-care (01) | DRG 807 ==
PROVIDERS: Admitting Provider Nurse Practitioner Obstetrics & Gynecology; PCP Family Medicine; Referring Provider Nurse Practitioner Obstetrics & Gynecology; Visit Provider Nurse Practitioner Obstetrics & Gynecology
DX: O24.424 Gestational diabetes mellitus in childbirth, insulin controlled (principal); Z37.0 Single live birth; Z3A.39 39 weeks gestation of pregnancy; Z20.822 Contact with and (suspected) exposure to COVID-19
CPT/HCPCS: 36415; 59050; 85025; 86850; 86900; 86901; 87635; C9803; G0379; J1885; J2590

== ENCOUNTER → 2020-12-16 07:21 | Outpatient (CLI) | payer BC, SELFPAY ==
[2020-12-16 08:11] LABS: Add Manual Diff / Slide Review NO; Basophils Absolute Auto 0 /uL (0-100); Basophils Percent Auto 0.9 % (0-2); Eosinophils Absolute Auto 100 /uL (0-450); Eosinophils Percent Auto 2.7 % (2-4); Hematocrit 45.1 % (36-46); Hemoglobin 14.6 g/dL (12.0-16.0); Lymphocytes Absolute Auto 1900 /uL (1100-4500); Lymphocytes Percent Auto 36.9 % (25-40); Mean Corpuscular HGB Conc 32.5 % (30-36); Mean Corpuscular Volume 95.4 fL (80-100); Monocytes Absolute Auto 500 /uL (0-900); Monocytes Percent Auto 9.1 % (3-14); Neutrophils Absolute Auto 2600 /uL (1500-7000); Neutrophils Percent Auto 50.4 % (50-75); Platelet Count 230 X10^3/uL (150-400); Red Blood Cell Count 4.73 X10^6/uL (4.0-5.2); Red Cell Distribution Width 12.4 % (11.6-14.8); White Blood Cell Count 5.2 X10^3/uL (4.5-11.0)
[2020-12-16 08:48] LABS: Alanine Aminotransferase 81 IU/L (<35); Albumin 4.8 g/dL (3.5-5.0); Albumin Globulin Ratio 1.5 (1.0-2.8); Alkaline Phosphatase 99 U/L (38-126); Aspartate Aminotransferase 66 IU/L (14-36); BUN Creatinine Ratio 22.5 (6-22); Bilirubin Total 0.5 mg/dL (0.2-1.3); Blood Urea Nitrogen 16 mg/dL (7-17); Calcium 9.6 mg/dL (8.4-10.2); Carbon Dioxide 28 mmol/L (22-32); Chloride 102 mmol/L (98-107); Cholesterol 249 mg/dL (140-199); Estimated Glomerular Filt Rate > 60.0 mL/min (>60); Globulin 3.2 g/dL (1.7-4.1); Glucose 65 mg/dL (70-100); HDL Cholesterol 93 mg/dL (40-60); HEMOLYSIS < 15 (0-50); LDL Cholesterol Calculated 145 mg/dL (<100); Sodium 140 mmol/L (137-145); Triglycerides 54 mg/dL (35-150)
[2020-12-16 08:54] LABS: Glucose Fasting 67 mg/dL (70-100)
[2020-12-16 08:58] LABS: Hemoglobin A1C% w Est Avg Glu 5.1 % (4.0-6.0)
[2020-12-16 09:46] LABS: Glucose 1 Hour 139 mg/dL (70-170)
[2020-12-16 09:58] LABS: Glucose Tol Interpretation INTERPRETATION
[2020-12-16 10:38] LABS: Glucose 2 Hour 96 mg/dL (70-140)
== END ==
PROVIDERS: PCP Family Medicine; Referring Provider Nurse Practitioner Obstetrics & Gynecology; Visit Provider Nurse Practitioner Obstetrics & Gynecology
DX: O24.414 Gestational diabetes mellitus in pregnancy, insulin controlled (principal); Z13.1 Encounter for screening for diabetes mellitus; Z86.32 Personal history of gestational diabetes; B97.7 Papillomavirus as the cause of diseases classified elsewhere; F42.9 Obsessive-compulsive disorder, unspecified; Z86.2 Personal history of diseases of the blood and blood-forming organs and certain disorders involving the immune mechanism; Z13.220 Encounter for screening for lipoid disorders; Z83.42 Family history of familial hypercholesterolemia
CPT/HCPCS: 36415; 80053; 80061; 82951; 82952; 83036; 85025

== ENCOUNTER → 2020-12-21 07:12 | Outpatient (CLI) | payer BC, SELFPAY ==
--- NOTE | 2020-12-21 | DI.US.S_ITS ---
PROCEDURE: US PELVIC COMPLETE INDICATIONS: POST BLEEDING TECHNIQUE: Real-time scanning was performed of the pelvic organs, with image documentation. Additional endovaginal scanning was necessary due to incomplete visualization of the adnexal and endometrial structures by transabdominal scanning. COMPARISON: None. FINDINGS: Uterus: Uterus is normal in size at 8.5 x 3.5 x 6.8 cm. The endometrium measures 1.7 mm in combined thickness, which is within normal limits. Ovaries: The right ovary measures 1.6 x 1.6 x 2.5 cm. The left ovary measures 2.5 x 0.9 x 0.9 cm. A simple appearing cyst is seen within the left ovary, measuring up to 11 mm. Other: No pathologic free abdominal or pelvic fluid. IMPRESSION: No evidence of retained products of conception. Dictated by: Gabriel Powers M.D. on 12/21/2020 at 7:52 Approved by: Gabriel Powers M.D. on 12/21/2020 at 7:56
== END ==
PROVIDERS: PCP Family Medicine; Referring Provider Nurse Practitioner Obstetrics & Gynecology; Visit Provider Nurse Practitioner Obstetrics & Gynecology
DX: O72.2 Delayed and secondary postpartum hemorrhage (principal)
CPT/HCPCS: 76830; 76856

== ENCOUNTER → 2021-01-17 10:24 | Outpatient (CLI) | payer BC, SELFPAY ==
[2021-01-17 13:41] LABS: Alanine Aminotransferase 29 IU/L (<35); Albumin 4.3 g/dL (3.5-5.0); Albumin Globulin Ratio 1.7 (1.0-2.8); Alkaline Phosphatase 91 U/L (38-126); Aspartate Aminotransferase 30 IU/L (14-36); BUN Creatinine Ratio 26.3 (6-22); Bilirubin Total 0.4 mg/dL (0.2-1.3); Blood Urea Nitrogen 15 mg/dL (7-17); Calcium 9.4 mg/dL (8.4-10.2); Carbon Dioxide 29 mmol/L (22-32); Chloride 102 mmol/L (98-107); Estimated Glomerular Filt Rate > 60.0 mL/min (>60); Globulin 2.6 g/dL (1.7-4.1); Glucose 77 mg/dL (70-100); HEMOLYSIS < 15 (0-50); Sodium 139 mmol/L (137-145); Total Protein 6.9 g/dL (6.3-8.2)
== END ==
PROVIDERS: PCP Family Medicine; Referring Provider Family Medicine; Visit Provider Family Medicine
DX: R79.89 Other specified abnormal findings of blood chemistry (principal)
CPT/HCPCS: 36415; 80053

== ENCOUNTER 2021-11-07 15:00 | Emergency (ER) | payer OTHER, BC, SELFPAY ==
[2021-11-07 15:05] VITALS: BP 117/73; PULSE 82; RESP 17; TEMP 36.6; O2SAT 100
[2021-11-07] MEDS: DEXAMETHASONE 10 MG/ML VIAL 8 MG IV (15:26)
[2021-11-07] MEDS: ONDANSETRON 4 MG/2 ML INJ IV (15:26)
[2021-11-07] MEDS: LACTATED RINGERS 1,000 ML 1000 ML IV (15:27)
[2021-11-07] MEDS: KETOROLAC 30 MG/ML VIAL 15 MG IM (15:27)
[2021-11-07] MEDS: ACETAMINOPHEN 325 MG TABLET 975 MG PO (15:27)
--- NOTE | 2021-11-07 15:34 | ED.HA ---
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 States that she took a COVID test at [facility] this morning and it was negative. Patient denies any recent fever, dysuria, altered mentation. She takes methylphenidate, sertraline and a vitamin daily. She has a history of iron-deficiency anemia, OCD, ADHD. She denies any weakness or incontinence, denies any fever or shortness of breath. Related Data Home Medications Medication Instructions Recorded Confirmed prenat.vits,bisi,[id number] 1 tab PO DAILY 10/27/19 06/01/21 Previous Rx's Medication Instructions Recorded sertraline 50 mg tablet 50 mg PO DAILY #30 tabs 06/02/21 methylphenidate HCl 10 mg tablet 10 mg PO BID #60 tabs 06/09/21 magnesium oxide 420 mg tablet 420 mg PO BEDTIME #30 tabs 11/07/21 metoclopramide HCl 10 mg tablet 10 mg PO Q6H PRN nausea and 11/07/21 (Reglan) vomiting #20 tabs ondansetron 4 mg disintegrating 4 mg PO Q8H #20 tabs 11/07/21 tablet Allergies Allergy/AdvReac Type Severity Reaction Status Date / Time No Known Drug Allergies Allergy Verified 11/07/21 15:08 Review of Systems <COLEEN Quick - Last Filed: 11/07/21 20:00> Review of Systems Narrative: Review of systems is negative for acute abnormalities unless otherwise noted in HPI Patient History <COLEEN Quick - Last Filed: 11/07/21 20:00> Medical History (Updated 11/07/21 @ 15:53 by COLEEN Quick) Abnormal Pap smear of cervix (~2012) Amniotic cavity/membrane problem suspected but not found Chlamydia (~2012) Fracture of wrist (~2001) H/O iron deficiency anemia Headache (~2008) Heavy menstrual period (~2004) Herpes (~2012) Human papilloma virus (~2012) Interstitial cystitis (~2013) Migraines (~2008) Normal vaginal delivery UTI (urinary tract infection) (~1991) Surgical History Anesthesia Status post loop electrosurgical excision procedure (LEEP) of cervix (08/19/14) Family History Father Age: 71 Mental health problem Sister Age: 34 Mental health problem Grandfather No problems noted. Social History marital status: occupational status: employed Smoking Status: Never smoker alcohol intake: current substance use type: does not use Smoking Status: Never smoker alcohol intake frequency: a few times a week Substance Use Type: does not use Exam <COLEEN Quick - Last Filed: 11/07/21 20:00> Narrative Exam Narrative: Reviewed vitals signs and nursing notes. General: cooperative, appears uncomfortable, lying in bed and nauseated. in no acute distress, well groomed HEENT: symmetrical facial expressions, moist mucous membranes, EOMI, pupils equal and reactive to light Cardiovascular: regular rate and rhythm, no peripheral edema, warm extremities, afebrile Respiratory: normal effort, able to speak in complete sentences, without wheezing, stridor, or abnormal breath sounds. No retractions or tachypnea. GI: abdomen soft, nontender to palpation, nondistended, without masses, rebound tenderness or exquisite tenderness with exam. MSK: moves all extremities, neurovascularly intact, no weakness, normal tone Skin: brisk capillary refill, without pallor or erythema Neuro: normal speech and cognition, A&O x3, ambulatory, clear speech, cranial nerves 2-12 tested without focal deficit Psych: mental status is grossly normal, congruent mood, normal affect, pleasant and cooperative Initial Vital Signs Initial Vital Signs: Vital Signs Temperature 98 F 11/07/21 15:05 Pulse Rate 82 11/07/21 15:05 Respiratory Rate 17 11/07/21 15:05 Blood Pressure 117/73 11/07/21 15:05 Pulse Oximetry 100 11/07/21 15:05 Oxygen Delivery Method 11/07/21 15:05 <Joseph Laura MD - Last Filed: 11/14/21 07:38> Initial Vital Signs Initial Vital Signs: Vital Signs Temperature 98 F 11/07/21 15:05 Pulse Rate 82 11/07/21 15:05 Respiratory Rate 17 11/07/21 15:05 Blood Pressure 117/73 11/07/21 15:05 Pulse Oximetry 100 11/07/21 15:05 Oxygen Delivery Method 11/07/21 15:05 Course <COLEEN Quick - Last Filed: 11/07/21 20:00> Orders Ordered: Discontinued Medications Acetaminophen (Acetaminophen 325 Mg Tablet) 975 mg PO NOW ONE Stop: 11/07/21 15:09 Last Admin: 11/07/21 15:27 Dose: 975 mg Documented By: AFRICA Dexamethasone (Dexamethasone 10 Mg/Ml Vial) 8 mg IV NOW ONE Stop: 11/07/21 15:09 Last Admin: 11/07/21 15:26 Dose: 8 mg Documented By: AFRICA Diphenhydramine HCl (Diphenhydramine 50 Mg/Ml Vial) 25 mg IV NOW ONE Stop: 11/07/21 15:25 Last Admin: 11/07/21 15:37 Dose: 25 mg Documented By: AFRICA Lactated Ringer's (Lactated Ringers) 1,000 mls @ 1,000 mls/hr IV BOLUS ONE Stop: 11/07/21 16:07 Last Infusion: 11/07/21 16:31 Dose: 0 mls/hr Documented By: Admin: 11/07/21 15:27 Dose: 1,000 mls/hr Documented By: AFRICA Ketorolac Tromethamine (Ketorolac 30 Mg/Ml Vial) 15 mg IM NOW ONE Stop: 11/07/21 15:09 Last Admin: 11/07/21 15:27 Dose: 15 mg Documented By: AFRICA Metoclopramide HCl (Metoclopramide 10 Mg/2 Ml Inj) 10 mg IV NOW ONE Stop: 11/07/21 15:25 Last Admin: 11/07/21 15:37 Dose: 10 mg Documented By: AFRICA Ondansetron HCl (Ondansetron 4 Mg/2 Ml Inj) 4 mg IV NOW ONE Stop: 11/07/21 15:09 Last Admin: 11/07/21 15:26 Dose: 4 mg Documented By: AFRICA Reevaluation(s) Reevaluation #1: Reassessment of patient's pain with improvement of her headache and nausea, patient states that she is ready for discharge home Vital Signs Vital signs: Vital Signs - 8 hr 11/07/21 15:05 Temperature 98 F Pulse Rate 82 Respiratory Rate 17 Blood Pressure 117/73 Pulse Oximetry 100 Oxygen Delivery Method Room Air <Joseph Laura MD - Last Filed: 11/14/21 07:38> Orders Ordered: Discontinued Medications Acetaminophen (Acetaminophen 325 Mg Tablet) 975 mg PO NOW ONE Stop: 11/07/21 15:09 Last Admin: 11/07/21 15:27 Dose: 975 mg Documented By: AFRICA Dexamethasone (Dexamethasone 10 Mg/Ml Vial) 8 mg IV NOW ONE Stop: 11/07/21 15:09 Last Admin: 11/07/21 15:26 Dose: 8 mg Documented By: AFRICA Diphenhydramine HCl (Diphenhydramine 50 Mg/Ml Vial) 25 mg IV NOW ONE Stop: 11/07/21 15:25 Last Admin: 11/07/21 15:37 Dose: 25 mg Documented By: AFRICA Lactated Ringer's (Lactated Ringers) 1,000 mls @ 1,000 mls/hr IV BOLUS ONE Stop: 11/07/21 16:07 Last Infusion: 11/07/21 16:31 Dose: 0 mls/hr Documented By: Admin: 11/07/21 15:27 Dose: 1,000 mls/hr Documented By: AFRICA Ketorolac Tromethamine (Ketorolac 30 Mg/Ml Vial) 15 mg IM NOW ONE Stop: 11/07/21 15:09 Last Admin: 11/07/21 15:27 Dose: 15 mg Documented By: AFRICA Metoclopramide HCl (Metoclopramide 10 Mg/2 Ml Inj) 10 mg IV NOW ONE Stop: 11/07/21 15:25 Last Admin: 11/07/21 15:37 Dose: 10 mg Documented By: AFRICA Ondansetron HCl (Ondansetron 4 Mg/2 Ml Inj) 4 mg IV NOW ONE Stop: 11/07/21 15:09 Last Admin: 08/29/22 15:26 Dose: 4 mg Documented By: AFRICA Vital Signs Vital signs: Vital Signs - 8 hr 11/07/21 15:05 Temperature 98 F Pulse Rate 82 Respiratory Rate 17 Blood Pressure 117/73 Pulse Oximetry 100 Oxygen Delivery Method Room Air MDM - Headache <Ana Muhammad [facility] - Last Filed: 11/07/21 20:00> [facility] Narrative Medical decision making narrative: This is a 31-year-old female with history of migraines 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 She was treated with 1 L of normal saline, Zofran, Reglan, dexamethasone 8 mg, Benadryl, Tylenol, 15 mg of IV Toradol and her pain and symptoms started to improve after 1.5 hours. She was prescribed ketorolac p.o., magnesium oxide, Zofran and Reglan to take as needed at home for persistence of this headache. She was ready for discharge after her medication helped. Headache considerations include subarachnoid hemorrhage, but unlikely as patient denies sudden onset of pain, not worst of life, or neck pain. Meningitis considered, but thought unlikely given lack of Brudzinski's and Kernig's sign, and without altered mental status or fever. Giant cell arteritis considered, but thought unlikely given lack of unilateral findings, pain in confucianism, or unilateral vision changes. HTN Emergency considered, but thought unlikely given normal vitals, considered infectious causes, acute metabolic illness, spontaneous hemorrhage, and vascular occlusion. They are without any focal deficits to suggest this. COVID PCR was negative this morning at [facility], patient will continue to test but is afebrile without other associated symptoms. Other serious diagnoses considered unlikely given lack of red flag findings such as sudden onset, increasing frequency, facial weakness, or other sensation change or weakness. They are not immunocompromised, without active malignancy, anticoagulation, systemic signs of illness (fever, chills, stiff neck, or rash), focal neurologic findings, or recent trauma. This is most likely (migraine, could be opthalmic, tension, hormonal, dehydration, viral illness, or muscle strain. There was no aura, and patient improved over their course in the ER. They were given strict return precautions for any altered mental status, fever, weakness, paresthesia, incontinence, or pain out of proportion to return to the emergency department for another evaluation. Discharge Plan Departure Patient Disposition: Home Clinical Impression: Migraine Qualifiers: Migraine type: without aura Status migrainosus presence: without status migrainosus Intractability: intractable Qualified Code(s): G43.019 - Migraine without aura, intractable, without status migrainosus Instructions: Migraine -- Adult, DI for Hormonal and Tension Headaches Activity Restrictions/Additional Instructions: Trish, sorry about your headache, it is rough. I have sent Toradol and Zofran to your pharmacy, please ask if need anything else. Stay hydrated, rest and I hope that you have a better rest of your day. Please take one of the magnesium tabs when you pick them up. You can take that nightly and it might help prevent migraine headache. It should help with smooth muscle relaxation and data has shown that magnesium can be helpful for migraine. Please use Zofran, Reglan, Benadryl, Tylenol and ibuprofen as needed for your next headache, remember to test for COVID tomorrow and the next if they all come back negative. Please stay off of work until you feel better. Call if you need anything. Yumi Prescriptions: New ondansetron 4 mg tablet,disintegrating 4 mg PO Q8H Qty: 20 0RF metoclopramide HCl [Reglan] 10 mg tablet 10 mg PO Q6H PRN (Reason: nausea and vomiting) Qty: 20 0RF magnesium oxide 420 mg tablet 420 mg PO BEDTIME Qty: 30 0RF No Action sertraline 50 mg tablet 50 mg PO DAILY Qty: 30 0RF methylphenidate HCl 10 mg tablet 10 mg PO BID Qty: 60 0RF prenat.vits,bisi,[id number] Tablet 1 tab PO DAILY Referrals: Kailyn Jackman DO [Primary Care Provider] - Visit Report Forms: Patient Portal/API <Joseph Laura MD - Last Filed: 11/14/21 07:38> Cosign ED Attending Stefanyature Attestation: I was immediately available for consultation of this patient was seen and evaluated by the APC in the department.
[2021-11-07] MEDS: METOCLOPRAMIDE 10 MG/2 ML INJ IV (15:37)
[2021-11-07] MEDS: diphenhydrAMINE 50 MG/ML VIAL 25 MG IV (15:37)
== END 2021-11-07 16:34 | disposition home or self-care (01) ==
PROVIDERS: Emergency Provider Nurse Practitioner Critical Care Medicine; PCP Family Medicine
DX: G43.019 Migraine without aura, intractable, without status migrainosus (principal); R42 Dizziness and giddiness; R11.0 Nausea; H53.8 Other visual disturbances
CPT/HCPCS: 36415; 96361; 96372; 96374; 96375; 99284; J1100; J1200; J1885; J2405; J2765

== ENCOUNTER → 2021-12-09 11:43 | Outpatient (CLI) | payer OTHER, BC, SELFPAY | PROVIDERS: PCP Family Medicine; Referring Provider Internal Medicine; Visit Provider Internal Medicine | DX: Z23 Encounter for immunization (principal) | CPT/HCPCS: 90471; 90686 ==